=== PATIENT | male | born 1975 | race American Indian/Alaskan Native ===

== ENCOUNTER 2017-08-07 11:14 | Emergency (ER) | payer SELFPAY ==
[2017-08-07 11:27] VITALS: BP 137/94
--- NOTE | 2017-08-07 14:38 | Emergency Department Report ---
Abscess Boil HPI - HPI Chief Complaint: Skin/Abscess/Foreign Body Stated Complaint: LFT SIDE FACE ABSCESS Time Seen by Provider: 08/07/17 14:26 Duration: 6 Days Location: Other (facial submandibular) History: Yes Pain, No Fever, No Purulent Drainage, No Numbness, No Foreign Body , No Previous History, No Insect Bite Home Medications: Home Medications Medication Instructions Recorded Confirmed Last Taken Divalproex Dr [Depakote] 500 mg PO BID 12/14/13 02/24/15 11/30/13 Previous Rx's Medication Instructions Recorded Last Taken Type Cyclobenzaprine [Flexeril 10mg] 10 mg PO TID PRN #20 tablet 02/24/15 Unknown Rx Ibuprofen [Motrin] 800 mg PO Q8H #30 tablet 02/24/15 Unknown Rx traMADol [Ultram 50 MG tab] 50 mg PO Q6HR PRN #20 tablet 02/24/15 Unknown Rx HYDROcodone/APAP 5-325 [[place] 1 each PO Q4HR PRN #20 tablet 02/19/16 Unknown Rx 5/325] Ibuprofen [Motrin] 600 mg PO Q6H PRN #20 tablet 02/19/16 Unknown Rx Penicillin Vk [Veetids TAB] 500 mg PO QID #40 tablet 02/19/16 Unknown Rx Cephalexin [Keflex] 500 mg PO TID #30 capsule 08/07/17 Unknown Rx Naproxen [Naproxen TAB] 500 mg PO BID PRN #60 tablet 08/07/17 Unknown Rx Allergies/Adverse Reactions: Allergies Allergy/AdvReac Type Severity Reaction Status Date / Time No Known Allergies Allergy Verified 06/24/15 14:02 ED Review of Systems ROS: Stated complaint: LFT SIDE FACE ABSCESS Other details as noted in HPI Constitutional: denies: chills, fever Eyes: denies: eye pain, eye discharge, vision change ENT: denies: ear pain, throat pain Respiratory: denies: cough, shortness of breath, wheezing Cardiovascular: denies: chest pain, palpitations Endocrine: no symptoms reported Gastrointestinal: denies: abdominal pain, nausea, diarrhea Genitourinary: denies: urgency, dysuria Musculoskeletal: denies: back pain, joint swelling, arthralgia Skin: other (abscess ) Neurological: denies: headache, weakness, paresthesias Psychiatric: denies: anxiety, depression Hematological/Lymphatic: denies: easy bleeding, easy bruising ED Past Medical Hx - Past Medical History Hx Psychiatric Treatment: Yes (BIPOLAR) Additional medical history: SICKLE CELL TRAIT. emphysema - Social History Smoking Status: Current Every Day Smoker Substance Use Type: Alcohol - Medications Home Medications: Home Medications Medication Instructions Recorded Confirmed Last Taken Type Divalproex Dr [Depakote] 500 mg PO BID 12/14/13 02/24/15 11/30/13 History Cyclobenzaprine [Flexeril 10mg] 10 mg PO TID PRN #20 tablet 02/24/15 Unknown Rx Ibuprofen [Motrin] 800 mg PO Q8H #30 tablet 02/24/15 Unknown Rx traMADol [Ultram 50 MG tab] 50 mg PO Q6HR PRN #20 tablet 02/24/15 Unknown Rx HYDROcodone/APAP 5-325 [[place] 1 each PO Q4HR PRN #20 tablet 02/19/16 Unknown Rx 5/325] Ibuprofen [Motrin] 600 mg PO Q6H PRN #20 tablet 02/19/16 Unknown Rx Penicillin Vk [Veetids TAB] 500 mg PO QID #40 tablet 02/19/16 Unknown Rx Cephalexin [Keflex] 500 mg PO TID #30 capsule 08/07/17 Unknown Rx Naproxen [Naproxen TAB] 500 mg PO BID PRN #60 tablet 08/07/17 Unknown Rx ED Abscess Boil Physical Exam - Exam General: Vital signs noted. No distress. Alert and acting appropriately. Front/Back of Body, Lg (Color): 1 - left submandibular abscess superfical fluctuant no drainage no erythema Size: 1 cm Exam: Yes Fluctuance, No Tenderness, No Surrounding Cellulites/Erythema, No Lymphangitis, No Crepitation, No Heart Murmur, No Normal Neurologic Exam, No Normal Circulation I & D Note - I & D Note I & D Note: left submandibular abscess superfical no oral involvement, site cleaned wtih betadine solution straight needle aspiration wtih 18 ga needle minimal purulent drainage, no ingrown hair noted, dressing applied pt given care instructions , pt verbalized agreement and understanding of same. pt tolerated procedure with minmal distress. ED Course Vital Signs 08/07/17 11:25 Temperature 98.4 F Pulse Rate 86 Respiratory 16 Rate Blood Pressure 137/94 O2 Sat by Pulse 100 Oximetry Critical care attestation.: If time is entered above; I have spent that time in minutes in the direct care of this critically ill patient, excluding procedure time. ED Medical Decision Making - Medical Decision Making pt is a 42 y/o aam who presents with facial abcess hx of same I&D see procedure note, pt tolerated with minimal distress, pt has hx of psuedofolliculitis will tx with keflex, soapwater washes no shaving until cleared pt verbalized agreement and understanding of same. ED Disposition Clinical Impression: Facial abscess, Folliculitis barbae Disposition: DC- TO HOME OR SELFCARE Is pt being admited?: No Does the pt Need Aspirin: No Condition: Good Instructions: Folliculitis (ED), Abscess (ED) Prescriptions: Cephalexin [Keflex] 500 mg PO TID #30 capsule Naproxen [Naproxen TAB] 500 mg PO BID PRN #60 tablet PRN Reason: Pain Referrals: PRIMARY CARE, [Primary Care Provider] - 3-5 Days Forms: Work/School Release Form(ED) Time of Disposition: 14:40
== END 2017-08-07 14:43 | disposition home or self-care (01) ==
LOC: ED 11:14
DX: L02.01 Cutaneous abscess of face (principal); L73.8 Other specified follicular disorders; F17.200 Nicotine dependence, unspecified, uncomplicated
CPT/HCPCS: 99281

== ENCOUNTER 2018-06-06 19:22 | Emergency (ER) | payer SELFPAY ==
[2018-06-06 19:52] VITALS: BP 123/83
[2018-06-06] MEDS ORDERED: MOTRIN PO ONE (19:52)
== END 2018-06-06 22:40 | disposition left against medical advice (07) ==
LOC: ED 19:22
DX: S61.451A Open bite of right hand, initial encounter (principal); Z53.21 Procedure and treatment not carried out due to patient leaving prior to being seen by health care provider; W54.0XXA Bitten by dog, initial encounter; Y93.89 Activity, other specified; Y92.89 Other specified places as the place of occurrence of the external cause; Y99.8 Other external cause status

== ENCOUNTER 2018-06-07 10:26 | Emergency (ER) | payer SELFPAY ==
[2018-06-07 10:32] VITALS: BP 108/88
--- NOTE | 2018-06-07 11:39 | Emergency Department Report ---
ED Animal Bite HPI - General Chief Complaint: Animal Bite Stated Complaint: DOG BITE Time Seen by Provider: 06/07/18 11:38 Source: patient Mode of arrival: Ambulatory Limitations: No Limitations - History of Present Illness Initial Comments: This is a 43-year-old -Thai male presents with laceration and puncture wound to right hand from a dog bite last night. Patient reports going over to his house last night around 1800 by his aunts dog. Patient states he reached down to grab his puppy to avoid his aunts dog from bitting his dog and got bite by his aunts dog on right hand. Initially he noticed bleeding from laceration and puncture wound around palm of 4th and 5th digits. There is swelling at laceration site and painful to touch. He has full range of motion with all digits. He cleaned with soap and water and came to ER last night for evaluation. He left prior to being seen and came back today for evaluation. Patient reports notifying police who called animal control. The dog was taking from home by animal control. He is unsure of immunization history. His aunt reports dog received shots initially when she received him and he is 2 years old. He doesn't believe the dog is infected with rabies because he is a house dog. Denies numbness or tingling, loss of consciousness, chest pain, and shortness of breath. MD Complaint: animal bite -: Last night Right: Hand Animal: dog Animal Control Notified: Yes Description: household pet, immunizations unknown, appeared well Mechanism: bite Pain Description: sharp, intermittent Severity scale (0 -10): 5 Context: animals fighting Associated Symptoms: erythema, bleeding. denies: discharge from wound, fever, chills, rash, loss of consciousness, cough, headache, diaphoresis, shortness of breath Treatments Prior to Arrival: irrigation - Related Data Home Medications Medication Instructions Recorded Confirmed Last Taken Divalproex Dr [Depakote] 500 mg PO BID 12/14/13 02/24/15 11/30/13 Previous Rx's Medication Instructions Recorded Last Taken Type Cyclobenzaprine [Flexeril 10mg] 10 mg PO TID PRN #20 tablet 02/24/15 Unknown Rx Ibuprofen [Motrin] 800 mg PO Q8H #30 tablet 02/24/15 Unknown Rx traMADol [Ultram 50 MG tab] 50 mg PO Q6HR PRN #20 tablet 02/24/15 Unknown Rx HYDROcodone/APAP 5-325 [[place] 1 each PO Q4HR PRN #20 tablet 02/19/16 Unknown Rx 5/325] Ibuprofen [Motrin] 600 mg PO Q6H PRN #20 tablet 02/19/16 Unknown Rx Penicillin Vk [Veetids TAB] 500 mg PO QID #40 tablet 02/19/16 Unknown Rx Cephalexin [Keflex] 500 mg PO TID #30 capsule 08/07/17 Unknown Rx Naproxen [Naproxen TAB] 500 mg PO BID PRN #60 tablet 08/07/17 Unknown Rx Acetaminophen/Codeine [Tylenol 1 tab PO Q6H PRN #12 tab 06/07/18 Unknown Rx /Codeine # 3 tab] Sulfamethoxazole/Trimethoprim 1 each PO BID 7 Days #14 tablet 06/07/18 Unknown Rx [Bactrim DS TAB] Allergies Allergy/AdvReac Type Severity Reaction Status Date / Time No Known Allergies Allergy Verified 06/24/15 14:02 ED Review of Systems ROS: Stated complaint: DOG BITE Other details as noted in HPI Constitutional: denies: chills, fever Respiratory: denies: cough, shortness of breath, wheezing Cardiovascular: denies: chest pain, palpitations Gastrointestinal: denies: abdominal pain, nausea, vomiting, diarrhea Skin: lesions (laceration and puncture wound to right hand). denies: rash Neurological: denies: headache, weakness, numbness, paresthesias Psychiatric: denies: anxiety, depression ED Past Medical Hx - Past Medical History Hx Psychiatric Treatment: Yes (BIPOLAR) Additional medical history: SICKLE CELL TRAIT. emphysema - Surgical History Past Surgical History?: No - Social History Smoking Status: Current Every Day Smoker Substance Use Type: Alcohol, Marijuana - Medications Home Medications: Home Medications Medication Instructions Recorded Confirmed Last Taken Type Divalproex Dr [Depakote] 500 mg PO BID 12/14/13 02/24/15 11/30/13 History Cyclobenzaprine [Flexeril 10mg] 10 mg PO TID PRN #20 tablet 02/24/15 Unknown Rx Ibuprofen [Motrin] 800 mg PO Q8H #30 tablet 02/24/15 Unknown Rx traMADol [Ultram 50 MG tab] 50 mg PO Q6HR PRN #20 tablet 02/24/15 Unknown Rx HYDROcodone/APAP 5-325 [[place] 1 each PO Q4HR PRN #20 tablet 02/19/16 Unknown Rx 5/325] Ibuprofen [Motrin] 600 mg PO Q6H PRN #20 tablet 02/19/16 Unknown Rx Penicillin Vk [Veetids TAB] 500 mg PO QID #40 tablet 02/19/16 Unknown Rx Cephalexin [Keflex] 500 mg PO TID #30 capsule 08/07/17 Unknown Rx Naproxen [Naproxen TAB] 500 mg PO BID PRN #60 tablet 08/07/17 Unknown Rx Acetaminophen/Codeine [Tylenol 1 tab PO Q6H PRN #12 tab 06/07/18 Unknown Rx /Codeine # 3 tab] Sulfamethoxazole/Trimethoprim 1 each PO BID 7 Days #14 tablet 06/07/18 Unknown Rx [Bactrim DS TAB] ED Physical Exam - General Limitations: No Limitations General appearance: alert, in no apparent distress - Respiratory Respiratory exam: Present: normal lung sounds bilaterally. Absent: respiratory distress - Cardiovascular Cardiovascular Exam: Present: regular rate, normal rhythm. Absent: systolic murmur, diastolic murmur, rubs, gallop - GI/Abdominal GI/Abdominal exam: Present: soft, normal bowel sounds - Extremities Exam Extremities exam: Present: full ROM, normal capillary refill. Absent: calf tenderness - Expanded Upper Extremity Exam Right Shoulder Exam: Present: normal inspection, full ROM Upper Arm exam: Present: normal inspection, full ROM Elbow exam: Present: normal inspection, full ROM Forearm Wrist exam: Present: normal inspection, full ROM Hand Wrist exam: Present: full ROM, swelling, laceration (puncture wound at 5th PIP, laceration palm PIP between 4th and 5th phalanx). Absent: tenderness, ecchymosis, deformity, crepidus, dislocation, erythema, amputation, nail avulsion, subungual hematoma Neuro motor exam: Present: wrist extension intact, thumb opposition intact, thumb IP flexion intact, thumb adduction intact, fingers 2-5 abduction intact Neurosensory exam: Present: radial nerve intact Vascular: Present: normal capillary refill, radial pulse - Neurological Exam Neurological exam: Present: alert, oriented X3 - Psychiatric Psychiatric exam: Present: normal affect, normal mood - Skin Skin exam: Present: warm, dry, intact, normal color. Absent: rash ED Course Vital Signs 06/07/18 10:29 Temperature 98.5 F Pulse Rate 96 H Respiratory 17 Rate Blood Pressure 108/88 O2 Sat by Pulse 98 Oximetry Critical care attestation.: If time is entered above; I have spent that time in minutes in the direct care of this critically ill patient, excluding procedure time. ED Disposition Clinical Impression: Left hand pain, Cellulitis of hand excluding fingers Dog bite of left hand with infection Qualifiers: Encounter type: initial encounter Qualified Code(s): S61.452A - Open bite of left hand, initial encounter Disposition: TO HOME OR SELFCARE Is pt being admited?: No Does the pt Need Aspirin: No Condition: Stable Instructions: Animal Bite (ED) Additional Instructions: Complete full course of antibiotics as prescribed. Take pain medication every 6 hours as needed for pain. Follow-up with primary care provider in 2-3 days. Return to the ER if fever, chest pain, and foul smelling discharge. Prescriptions: Acetaminophen/Codeine [Tylenol /Codeine # 3 tab] 1 tab PO Q6H PRN #12 tab PRN Reason: Pain , Severe (7-10) Sulfamethoxazole/Trimethoprim [Bactrim DS TAB] 1 each PO BID 7 Days #14 tablet Referrals: [facility] [Outside] - 3-5 Days [facility] [Outside] - 3-5 Days [facility] [Outside] - 3-5 Days Time of Disposition: 12:42 Print Language: MONGOLIAN ED Medical Decision Making - Radiology Data Radiology results: report reviewed Right hand: Dog bite. There appears to be soft tissue laceration along the fifth metacarpal. No foreign body noted. No underlying bony injury. The remainder of the bones and joints appear unremarkable. Impression: Soft tissue injury. - Medical Decision Making This is a 43 y.o. male presents with dog bite to right hand with puncture wound and laceration from yesterday around 1800. Patient was examined by me. Vitals are normal. X-ray of right hand obtained and reevaluated by radiology, soft tissue injury. Patient offered rabies prophylaxis and refused. Patient given tetanus and tramadol in ER. Start Bactrim DS, naproxen, Tylenol #3 for cellulitis. Patient informed of results. Plan discussed with patient to discharge home and treat outpatient. He agrees with ER plan. Patient discharged home in stable condition. Follow up with PCP in 2-3 days.Soft tissue injury.
--- NOTE | 2018-06-07 12:32 | XRay Report ---
Right hand: Dog bite. There appears to be soft tissue laceration along the fifth metacarpal. No foreign body noted. No underlying bony injury. The remainder of the bones and joints appear unremarkable. Impression: Soft tissue injury.
[2018-06-07] MEDS ORDERED: BOOSTRIX IM ONE (12:44)
[2018-06-07] MEDS ORDERED: ULTRAM PO ONE (12:44)
== END 2018-06-07 12:54 | disposition home or self-care (01) ==
LOC: ED 10:26
DX: S61.452A Open bite of left hand, initial encounter (principal); L03.113 Cellulitis of right upper limb; F31.9 Bipolar disorder, unspecified; F17.200 Nicotine dependence, unspecified, uncomplicated; F12.10 Cannabis abuse, uncomplicated
CPT/HCPCS: 90471; 90715; 99283

== ENCOUNTER 2021-08-23 16:32 | Inpatient (IN) | payer SELFPAY ==
[2021-08-23] MEDS ORDERED: SODIUM CHLORIDE 0.9% 1000 ML 1,000 ML IV ONE ×2 (17:06)
--- NOTE | 2021-08-23 17:23 | Emergency Department Report ---
HPI - General Chief Complaint: Hyperglycemia Time Seen by Provider: 08/23/21 16:57 - HPI HPI: MSE 6 The patient is a 46-year-old male present present with a chief complaint of nausea vomiting. The patient states he has been out of his insulin for the past 4 weeks. Patient states for the past 2 weeks he has had persistent nausea vomiting making him unable to keep any food down. Patient admits to polyuria and polydipsia. Patient denies history of fever or cough. Patient states he received his Covid vaccination several months ago. ED Past Medical Hx - Past Medical History Hx Diabetes: Yes Hx Psychiatric Treatment: Yes (BIPOLAR) Additional medical history: SICKLE CELL TRAIT. emphysema - Surgical History Past Surgical History?: No - Family History Family history: no significant - Social History Smoking Status: Current Every Day Smoker (12/13 pack/day) Substance Use Type: Alcohol (Occasional), Marijuana, Methamphetamines (No IVDA) - Medications Home Medications: Home Medications Medication Instructions Recorded Confirmed Last Taken Type Divalproex Dr [Depakote] 500 mg PO BID 12/14/13 02/24/15 11/30/13 History Cyclobenzaprine [Flexeril 10mg] 10 mg PO TID PRN #20 tablet 02/24/15 Unknown Rx Ibuprofen [Motrin] 800 mg PO Q8H #30 tablet 02/24/15 Unknown Rx traMADoL [Ultram 50 MG tab] 50 mg PO Q6HR PRN #20 tablet 02/24/15 Unknown Rx HYDROcodone/APAP 5-325 [[place] 1 each PO Q4HR PRN #20 tablet 02/19/16 Unknown Rx 5/325] Ibuprofen [Motrin] 600 mg PO Q6H PRN #20 tablet 02/19/16 Unknown Rx Penicillin Vk [Veetids TAB] 500 mg PO QID #40 tablet 02/19/16 Unknown Rx Naproxen [Naproxen TAB] 500 mg PO BID PRN #60 tablet 08/07/17 Unknown Rx cephALEXin [Keflex] 500 mg PO TID #30 capsule 08/07/17 Unknown Rx Acetaminophen/Codeine [Tylenol 1 tab PO Q6H PRN #12 tab 06/07/18 Unknown Rx /Codeine # 3 tab] Sulfamethoxazole/Trimethoprim 1 each PO BID 7 Days #14 tablet 06/07/18 Unknown Rx [Bactrim DS TAB] ED Review of Systems ROS: Stated complaint: DKA Other details as noted in HPI Eyes: denies: eye pain ENT: denies: throat pain Respiratory: denies: cough Cardiovascular: denies: chest pain Endocrine: increased thirst, increased urine Gastrointestinal: nausea, vomiting Genitourinary: denies: dysuria Musculoskeletal: denies: back pain Neurological: denies: headache Physical Exam - Physical Exam Vital Signs: Vital Signs 08/23/21 16:48 Respiratory 20 Rate Blood Pressure 97/60 Physical Exam: GENERAL: The patient is a very thin male sitting in wheelchair not appearing to be in acute distress HEENT: Normocephalic. Atraumatic. Extraocular motions are intact. NECK: Supple. Trachea midline CHEST/LUNGS: Clear to auscultation. There is no respiratory distress noted. HEART/CARDIOVASCULAR: Regular. There is no tachycardia. There is no gallop rub or murmur. ABDOMEN: Abdomen is soft, nontender. Patient has normal bowel sounds. There is no abdominal distention. SKIN: There is no rash. There is no edema. There is no diaphoresis. NEURO: The patient is awake, alert, and oriented. The patient is cooperative. The patient has no focal neurologic deficits. The patient has normal speech. GCS 15 MUSCULOSKELETAL:There is no evidence of acute injury. ED Course Vital Signs 08/23/21 16:48 Respiratory 20 Rate Blood Pressure 97/60 ED Medical Decision Making - Lab Data Result diagrams: 08/23/21 18:39 - Differential Diagnosis DKA, dehydration, hyperosmotic nonketotic state Critical care attestation.: If time is entered above; I have spent that time in minutes in the direct care of this critically ill patient, excluding procedure time. ED Disposition Clinical Impression: DKA (diabetic ketoacidosis) Disposition: ADMITTED INPATIENT Is pt being admited?: Yes Does the pt Need Aspirin: No Condition: Fair Instructions: Diabetic Ketoacidosis (ED)
[2021-08-23 19:20] LABS: BUN/Creatinine Ratio 25; Blood Urea Nitrogen 35 mg/dL (9-20); Calcium 9.9 mg/dL (8.4-10.2); Hemolysis Index 33
[2021-08-23 19:53] LABS: Basophils % (Auto) 0.6 % (0.0-1.8); Hematocrit 45.5 % (35.5-45.6); Hemoglobin 14.7 gm/dl (11.8-15.2); Lymphocytes # (Auto) 1.1 K/mm3 (1.2-5.4); Lymphocytes % (Auto) 25.7 % (13.4-35.0); Mean Corpuscular HGB Conc 32 % (32-34); Mean Corpuscular Volume 84 fl (84-94); Monocytes # (Auto) 0.2 K/mm3 (0.0-0.8); Monocytes % (Auto) 5.7 % (0.0-7.3); Red Blood Count 5.42 M/mm3 (3.65-5.03); Red Cell Distribution Width 16.7 % (13.2-15.2)
[2021-08-23] MEDS ORDERED: INSULIN REGULAR, HUMAN 100 UNITS in SODIUM CHLORIDE 0.9% 99 ML IV SCH (20:00)
[2021-08-23 20:10] LABS: Platelet Count 132 K/mm3 (140-440)
[2021-08-23] MEDS ORDERED: ALUM-MAG HYDROXIDE-SIMETHICONE 200-200-20MG/5ML ORAL LIQD 30 ML PO PRN (20:35)
[2021-08-23] MEDS ORDERED: ONDANSETRON 4 MG/2 ML INJ IV PRN ×2 (20:35)
[2021-08-23] MEDS ORDERED: ACETAMINOPHEN 325 MG TAB PO PRN ×2 (20:35)
[2021-08-23] MEDS ORDERED: oxyCODONE /ACETAMINOPHEN 5-325MG TAB PO PRN (20:35)
[2021-08-23] MEDS ORDERED: HYDROmorphone 1 MG/1 ML INJ IV PRN (20:35)
[2021-08-23] MEDS ORDERED: MORPHINE 2 MG/1 ML INJ IV PRN ×2 (20:35)
[2021-08-23] MEDS ORDERED: NALOXONE 0.4 MG/1 ML INJ IV PRN (20:35)
[2021-08-23] MEDS ORDERED: MAGNESIUM HYDROXIDE (MOM) ORAL LIQD UDC PO PRN (20:35)
[2021-08-23] MEDS ORDERED: SODIUM CHLORIDE 0.9% 1000 ML 1,000 ML IV SCH ×2 (20:45)
[2021-08-23] MEDS ORDERED: DIVALPROEX DR 500 MG TAB PO SCH (22:00)
[2021-08-23] MEDS ORDERED: HEPARIN 5,000 UNIT/1 ML VIAL SUB-Q SCH (22:00)
--- NOTE | 2021-08-23 22:40 | History and Physical Report ---
History of Present Illness Date of examination: 08/23/21 Date of admission: 08/23/21 20:35 Chief complaint: Generalized weakness History of present illness: This is a 46-year-old male who presented to emergency room with chief complaint of nausea, vomiting, and generalized weakness. When asked why did he come to the emergency room, patient said his mother brought him because he was weak. He has a past medical history of uncontrolled diabetes and seizure disorder.The patient states he has been out of his insulin for the past 4 weeks. Patient states for the past 2 weeks he has had persistent nausea vomiting making him unable to keep any food down. Patient admits to polyuria and polydipsia. Patient denies history of fever or cough. Patient states he received his Covid vaccination several months ago. I reviewed her medical medical record, lab work and vital signs. Patient blood sugar on admission 726 mg/dl. Patient was started on DKA protocolinsulin drip with every hour blood sugar check. Past History Past Medical History: diabetes, seizures Past Surgical History: No surgical history Social history: smoking, alcohol abuse, full code. denies: prescription drug abuse, IV drug use Family history: no significant family history Medications and Allergies Allergies Allergy/AdvReac Type Severity Reaction Status Date / Time No Known Allergies Allergy Verified 06/24/15 14:02 Home Medications Medication Instructions Recorded Confirmed Last Taken Type Divalproex Dr [Depakote] 500 mg PO BID 12/14/13 02/24/15 11/30/13 History Cyclobenzaprine [Flexeril 10mg] 10 mg PO TID PRN #20 tablet 02/24/15 Unknown Rx Ibuprofen [Motrin] 800 mg PO Q8H #30 tablet 02/24/15 Unknown Rx traMADoL [Ultram 50 MG tab] 50 mg PO Q6HR PRN #20 tablet 02/24/15 Unknown Rx HYDROcodone/APAP 5-325 [[place] 1 each PO Q4HR PRN #20 tablet 02/19/16 Unknown Rx 5/325] Ibuprofen [Motrin] 600 mg PO Q6H PRN #20 tablet 02/19/16 Unknown Rx Penicillin Vk [Veetids TAB] 500 mg PO QID #40 tablet 02/19/16 Unknown Rx Naproxen [Naproxen TAB] 500 mg PO BID PRN #60 tablet 08/07/17 Unknown Rx cephALEXin [Keflex] 500 mg PO TID #30 capsule 08/07/17 Unknown Rx Acetaminophen/Codeine [Tylenol 1 tab PO Q6H PRN #12 tab 06/07/18 Unknown Rx /Codeine # 3 tab] Sulfamethoxazole/Trimethoprim 1 each PO BID 7 Days #14 tablet 06/07/18 Unknown Rx [Bactrim DS TAB] Active Meds: Active Medications Acetaminophen (Acetaminophen 325 Mg Tab) 650 mg PO Q4H PRN PRN Reason: Pain MILD(1-3)/Fever >100.5/[place] Al Hydrox/Mg Hydrox/Simethicone (Alum-Mag Hydroxide-Simethicone [phone]/5ml Oral Liqd 30 Ml) 30 ml PO Q4H PRN PRN Reason: Indigestion Divalproex Sodium (Divalproex Dr 500 Mg Tab) 500 mg PO BID JUAN JOSÉ Heparin Sodium (Porcine) (Heparin 5,000 Unit/1 Ml Vial) 5,000 unit SUB-Q Q12HR JUAN JOSÉ Last Admin: 08/23/21 22:24 Dose: 5,000 unit Documented by: Hydromorphone HCl (Hydromorphone 1 Mg/1 Ml Inj) 0.5 mg IV Q3H PRN PRN Reason: Pain , Severe (7-10) Insulin Human Regular 100 (units/ Sodium Chloride) 100 mls @ 5 mls/hr IV TITR JUAN JOSÉ; Protocol Last Titration: 08/23/21 22:23 Dose: 7 units/hr, 7 mls/hr Documented by: Sodium Chloride (Nacl 0.9% 1000 Ml) 1,000 mls @ 125 mls/hr IV DIRECT JUAN JOSÉ Last Admin: 08/23/21 21:24 Dose: 125 mls/hr Documented by: Magnesium Hydroxide (Magnesium Hydroxide (Mom) Oral Liqd Udc) 30 ml PO Q4H PRN PRN Reason: Constipation Morphine Sulfate (Morphine 2 Mg/1 Ml Inj) 2 mg IV Q4H PRN PRN Reason: Pain, Moderate (4-6) Morphine Sulfate (Morphine 2 Mg/1 Ml Inj) 2 mg IV Q4H PRN PRN Reason: Pain, Moderate (4-6) Naloxone HCl (Naloxone 0.4 Mg/1 Ml Inj) 0.1 mg IV Q2MIN PRN PRN Reason: Res Rate </= 8 or 02 SAT < 92% Ondansetron HCl (Ondansetron 4 Mg/2 Ml Inj) 4 mg IV Q8H PRN PRN Reason: Nausea And Vomiting Oxycodone/Acetaminophen (Oxycodone /Acetaminophen 5-325mg Tab) 1 tab PO Q6H PRN PRN Reason: Pain, Moderate (4-6) Sodium Chloride (Sodium Chloride 0.9% 10 Ml Flush Syringe) 10 ml IV BID [facility] Last Admin: 08/23/21 22:24 Dose: 10 ml Documented by: Sodium Chloride (Sodium Chloride 0.9% 10 Ml Flush Syringe) 10 ml IV PRN PRN PRN Reason: LINE FLUSH Sodium Chloride (Sodium Chloride 0.9% 10 Ml Flush Syringe) 10 ml IV BID [facility] Last Admin: 08/23/21 22:25 Dose: 10 ml Documented by: Sodium Chloride (Sodium Chloride 0.9% 10 Ml Flush Syringe) 10 ml IV PRN PRN PRN Reason: LINE FLUSH Review of Systems Constitutional: anorexia, fatigue, weakness Ears, nose, mouth and throat: no epistaxis, no bleeding gums Cardiovascular: lightheadedness, no dyspnea on exertion Gastrointestinal: no abdominal pain Musculoskeletal: no neck stiffness, no neck pain Integumentary: no rash, no pruritis, no redness Psychiatric: anxiety Endocrine: high blood sugars, fatigue Hematologic/Lymphatic: no easy bruising, no easy bleeding Allergic/Immunologic: no urticaria Exam - Constitutional Vitals: Temp Pulse Resp BP Pulse Ox 57 L 21 105/69 99 08/23/21 21:45 08/23/21 21:25 08/23/21 21:45 08/23/21 21:45 General appearance: Present: no acute distress, well-nourished - EENT Eyes: Present: PERRL ENT: hearing intact, clear oral mucosa - Neck Neck: Present: supple, normal ROM - Respiratory Respiratory effort: normal Respiratory: bilateral: CTA - Cardiovascular Heart Sounds: Present: S1 & S2. Absent: rub, click - Extremities Extremities: pulses symmetrical, No edema Peripheral Pulses: within normal limits - Abdominal General gastrointestinal: Present: soft, non-tender, non-distended, normal bowel sounds Male genitourinary: Present: normal - Integumentary Integumentary: Present: clear, warm, dry - Musculoskeletal Musculoskeletal: strength equal bilaterally, generalized weakness - Psychiatric Psychiatric: appropriate mood/affect, intact judgment & insight, cooperative - Neurologic Neurologic: CNII-XII intact, moves all extremities - Allied Health Allied health notes reviewed: nursing Results - Labs CBC & Chem 7: 08/23/21 18:39 08/24/21 04:12 Labs: Abnormal lab results 08/23/21 08/23/21 08/23/21 Range/Units 16:45 18:39 18:39 WBC 4.4 L (4.5-11.0) K/mm3 RBC 5.42 H (3.65-5.03) M/mm3 MCH 27 L (28-32) pg RDW 16.7 H (13.2-15.2) % Plt Count 132 L (140-440) K/mm3 Lymph # (Auto) 1.1 L (1.2-5.4) K/mm3 VBG pH (7.320-7.420) BUN 35 H (9-20) mg/dL Creatinine 1.4 H (0.8-1.3) mg/dL Glucose 726 H* (75-100) mg/dL POC Glucose > 600 H (70-105) mg/dL Valproic Acid (50-100) ug/mL 08/23/21 08/23/21 08/23/21 Range/Units 18:39 18:39 22:21 WBC (4.5-11.0) K/mm3 RBC (3.65-5.03) M/mm3 MCH (28-32) pg RDW (13.2-15.2) % Plt Count (140-440) K/mm3 Lymph # (Auto) (1.2-5.4) K/mm3 VBG pH 7.292 L (7.320-7.420) BUN (9-20) mg/dL Creatinine (0.8-1.3) mg/dL Glucose (75-100) mg/dL POC Glucose 387 H (70-105) mg/dL Valproic Acid < 2.8 L (50-100) ug/mL Assessment and Plan - Patient Problems (1) DKA (diabetic ketoacidosis) Current Visit: Yes Status: Acute Plan to address problem: Started IV hydration with normal saline Patient blood sugar 726 on admission Patient started on DKA protocol with insulin drip and blood sugar monitor every 1 hour. Blood sugar has normalized and is low 60s. We will stop insulin drip and monitor blood sugar very closely with sliding scale protocol We will resume insulin drip if needed. Discontinue normal saline IV hydration 2/2 to elevated sodium level and start 5% dextrose at 100 cc an hour. hemoglobin A1c-18.0 (2) Gastroenteritis Current Visit: No Status: Acute Plan to address problem: Likely secondary to elevated blood sugar/ uncontrolled diabetes Patient denies nausea, vomiting, or diarrhea at the time of assessment Continue antiemetic and Reglan as needed (3) Acute kidney injury Current Visit: Yes Status: Acute Plan to address problem: likely 2/2 to dehydration Monitor kidney function and avoid nephrotoxic drugs We will consult dairy processing supervisor if needed (4) Dehydration Current Visit: Yes Status: Acute Plan to address problem: IV hydration with Normal salin (5) Tobacco abuse Current Visit: Yes Status: Acute Plan to address problem: discussed tobacco use cessation Cardiovascular neoplasm syndrome of tobacco use explained to patient (6) History of seizure Current Visit: Yes Status: Acute Plan to address problem: Continue home antiseizure medicine Depakote Seizure precaution (7) Uncontrolled diabetes mellitus Current Visit: Yes Status: Acute Plan to address problem: Monitor blood sugar with sliding scale protocol Hemoglobin [id number] Start statin and check lipid profile Consult executive director sheltered workshop educator Patient advised to follow-up with program director air talent post discharge (8) DVT prophylaxis Current Visit: Yes Status: Acute Plan to address problem: Subcutaneous heparin
[2021-08-24 00:06] LABS: BUN/Creatinine Ratio 26; Blood Urea Nitrogen 31 mg/dL (9-20); Hemolysis Index 12
[2021-08-24] MEDS ORDERED: DEXTROSE 50% IN WATER (25GM) 50 ML SYRINGE IV PRN (00:45)
[2021-08-24 03:36] LABS: BUN/Creatinine Ratio 25; Blood Urea Nitrogen 27 mg/dL (9-20); Hemolysis Index 10
[2021-08-24 05:26] LABS: Alanine Aminotransferase 27 units/L (7-56); Albumin 3.7 g/dL (3.9-5); BUN/Creatinine Ratio 27; Blood Urea Nitrogen 27 mg/dL (9-20); Calcium 9.9 mg/dL (8.4-10.2); Hemolysis Index 4
[2021-08-24] MEDS ORDERED: INSULIN LISPRO 100 UNIT/ML SUB-Q SCH ×2 (06:00→08:00)
[2021-08-24] MEDS ORDERED: DEXTROSE 5% IN WATER 1,000 ML IV SCH (07:00)
[2021-08-24 07:29] VITALS: BP 94/61
--- NOTE | 2021-08-24 08:20 | Progress Note ---
Assessment and Plan Assessment and plan: 46-year-old male with past medical history of diabetes and seizures presenting to the emergency department with complaint of nausea, vomiting, generalized weakness. Admission blue blood glucose 726 mg/ DL. Patient is admitted for diabetic ketoacidosis, initiated on DKA protocol/insulin drip and is currently ICU level of care. Hospital course to date Assessment and Plan Neuro Cardio Pulmonary GI Heme ID Endo The high probability of a clinically significant, sudden or life threatening deterioration of the [pulmonary, neuro] system(s) required my full and direct attention, intervention and personal management. The aggregate critical care time was [60] minutes. This time is in addition to time spent performing reported procedures but includes the following: [x] Data Review and interpretation [x] Patient assessment and monitoring of vital signs [x] Documentation [x] Medication orders and management Hospitalist Physical - Constitutional Vitals: Temp Pulse Resp BP Pulse Ox 97.8 F 60 12 94/61 84 08/23/21 22:30 08/24/21 07:15 08/24/21 07:15 08/24/21 07:15 08/24/21 07:01 General appearance: Present: no acute distress, well-nourished Results - Labs CBC & Chem 7: 08/23/21 18:39 08/24/21 04:12 Labs: Laboratory Last Values WBC 4.4 K/mm3 (4.5-11.0) L 08/23/21 18:39 RBC 5.42 M/mm3 (3.65-5.03) H 08/23/21 18:39 Hgb 14.7 gm/dl (11.8-15.2) 08/23/21 18:39 Hct 45.5 % (35.5-45.6) 08/23/21 18:39 MCV 84 fl (84-94) 08/23/21 18:39 MCH 27 pg (28-32) L 08/23/21 18:39 MCHC 32 % (32-34) 08/23/21 18:39 RDW 16.7 % (13.2-15.2) H 08/23/21 18:39 Plt Count 132 K/mm3 (140-440) L 08/23/21 18:39 Lymph % (Auto) 25.7 % (13.4-35.0) 08/23/21 18:39 [place] % (Auto) 5.7 % (0.0-7.3) 08/23/21 18:39 Eos % (Auto) 1.0 % (0.0-4.3) 08/23/21 18:39 Baso % (Auto) 0.6 % (0.0-1.8) 08/23/21 18:39 Lymph # (Auto) 1.1 K/mm3 (1.2-5.4) L 08/23/21 18:39 [place] # (Auto) 0.2 K/mm3 (0.0-0.8) 08/23/21 18:39 Eos # (Auto) 0.0 K/mm3 (0.0-0.4) 08/23/21 18:39 Baso # (Auto) 0.0 K/mm3 (0.0-0.1) 08/23/21 18:39 Seg Neutrophils % 67.0 % (40.0-70.0) 08/23/21 18:39 Seg Neutrophils # 2.9 K/mm3 (1.8-7.7) 08/23/21 18:39 VBG pH 7.292 (7.320-7.420) L 08/23/21 18:39 Sodium 157 mmol/L (137-145) H 08/24/21 04:12 Potassium 3.8 mmol/L (3.6-5.0) 08/24/21 04:12 Chloride 120.1 mmol/L (98-107) H 08/24/21 04:12 Carbon Dioxide 24 mmol/L (22-30) 08/24/21 04:12 Anion Gap 17 mmol/L 08/24/21 04:12 BUN 27 mg/dL (9-20) H 08/24/21 04:12 Creatinine 1.0 mg/dL (0.8-1.3) 08/24/21 04:12 Estimated GFR > 60 ml/min 08/24/21 04:12 BUN/Creatinine Ratio 27 % 08/24/21 04:12 Glucose 68 mg/dL (75-100) L 08/24/21 04:12 POC Glucose 245 mg/dL (70-105) H 08/24/21 07:10 Hemoglobin A1c 18.0 % (4-6) H 08/23/21 18:39 Calcium 9.9 mg/dL (8.4-10.2) 08/24/21 04:12 Phosphorus 2.00 mg/dL (2.5-4.5) L 08/24/21 04:12 Magnesium 2.70 mg/dL (1.7-2.3) H 08/24/21 04:12 Total Bilirubin < 0.20 mg/dL (0.1-1.2) 08/24/21 04:12 AST 19 units/L (5-40) 08/24/21 04:12 ALT 27 units/L (7-56) 08/24/21 04:12 Alkaline Phosphatase 87 units/L (35-129) 08/24/21 04:12 Total Protein 6.8 g/dL (6.3-8.2) 08/24/21 04:12 Albumin 3.7 g/dL (3.9-5) L 08/24/21 04:12 Albumin/Globulin Ratio 1.2 % 08/24/21 04:12 Lipase 47 units/L (13-60) 08/23/21 18:39 Valproic Acid < 2.8 ug/mL (50-100) L 08/23/21 18:39 Active Medications - Current Medications Current Medications: Generic Name Dose Route Start Last Admin Trade Name Freq PRN Reason Stop Dose Admin Acetaminophen 650 mg 08/23/21 20:35 Acetaminophen 325 Mg Tab PO Q4H PRN Pain MILD(1-3)/Fever >100.5/[place] Al Hydrox/Mg Hydrox/Simethicone 30 ml 08/23/21 20:35 Alum-Mag Hydroxide-Simethicone [phone]/5ml Oral Liqd 30 Ml PO Q4H PRN Indigestion Dextrose 50 ml 08/24/21 00:45 Dextrose 50% In Water (25gm) 50 Ml Syringe IV Q30MIN PRN Hypoglycemia Protocol Divalproex Sodium 500 mg 08/23/21 22:00 08/23/21 23:[address] 500 Mg Tab PO Not Given BID JUAN JOSÉ Heparin Sodium (Porcine) 5,000 unit 08/23/21 22:00 08/23/21 22:24 Heparin 5,000 Unit/1 Ml Vial SUB-Q 5,000 unit Q12HR JUAN JOSÉ Administration Hydromorphone HCl 0.5 mg 08/23/21 20:35 Hydromorphone 1 Mg/1 Ml Inj IV Q3H PRN Pain , Severe (7-10) Dextrose 1,000 mls @ 100 mls/hr 08/24/21 07:00 D5w IV DIRECT [facility] Insulin Glargine 15 units 08/24/21 22:00 Insulin Glargine 100 Units/Ml SUB-Q QHS [facility] Insulin Human Lispro 0 unit 08/24/21 06:00 08/24/21 07:07 Insulin Lispro 100 Unit/Ml SUB-Q Not Given Q6HR [facility] Protocol Insulin Human Lispro 6 unit 08/24/21 08:00 Insulin Lispro 100 Unit/Ml SUB-Q ACHS JUAN JOSÉ Magnesium Hydroxide 30 ml 08/23/21 20:35 Magnesium Hydroxide (Mom) Oral Liqd Udc PO Q4H PRN Constipation Morphine Sulfate 2 mg 08/23/21 20:35 Morphine 2 Mg/1 Ml Inj IV Q4H PRN Pain, Moderate (4-6) Morphine Sulfate 2 mg 08/23/21 20:35 Morphine 2 Mg/1 Ml Inj IV Q4H PRN Pain, Moderate (4-6) Naloxone HCl 0.1 mg 08/23/21 20:35 Naloxone 0.4 Mg/1 Ml Inj IV Q2MIN PRN Res Rate </= 8 or 02 SAT < 92% Ondansetron HCl 4 mg 08/23/21 20:35 Ondansetron 4 Mg/2 Ml Inj IV Q8H PRN Nausea And Vomiting Oxycodone/Acetaminophen 1 tab 08/23/21 20:35 Oxycodone /Acetaminophen 5-325mg Tab PO Q6H PRN Pain, Moderate (4-6) Sodium Chloride 10 ml 08/23/21 22:00 08/23/21 22:24 Sodium Chloride 0.9% 10 Ml Flush Syringe IV 10 ml BID UJAN JOSÉ Administration Sodium Chloride 10 ml 08/23/21 20:35 Sodium Chloride 0.9% 10 Ml Flush Syringe IV PRN PRN LINE FLUSH Sodium Chloride 10 ml 08/23/21 22:00 08/23/21 22:25 Sodium Chloride 0.9% 10 Ml Flush Syringe IV 10 ml BID JUAN JOSÉ Administration Sodium Chloride 10 ml 08/23/21 20:35 Sodium Chloride 0.9% 10 Ml Flush Syringe IV PRN PRN LINE FLUSH
--- NOTE | 2021-08-24 13:26 | Discharge Summary ---
Providers - Providers Date of Admission: 08/23/21 20:35 Attending physician: FREDERICK SCOTT MD 08/23/21 20:35 Consult to Dietitian/Nutrition [CONS] Routine Physician Instructions: Reason For Exam: DKA Reason for Consult: Nutrition Recommendations Reason for Consult: Malnutrition Consult to Physician [CONS] Routine Comment: Consulting Provider: EMELI AGUERO Physician Instructions: Reason For Exam: DKA Primary care physician: [facility] MD CYNTHIA Hospitalization Reason for admission: weakness Condition: Undetermined Hospital course: Chief complaint: Generalized weakness History of present illness: This is a 46-year-old male who presented to emergency room with chief complaint of nausea, vomiting, and generalized weakness. When asked why did he come to the emergency room, patient said his mother brought him because he was weak. He has a past medical history of uncontrolled diabetes and seizure disorder.The patient states he has been out of his insulin for the past 4 weeks. Patient states for the past 2 weeks he has had persistent nausea vomiting making him unable to keep any food down. Patient admits to polyuria and polydipsia. Patient denies history of fever or cough. Patient states he received his Covid vaccination several months ago. I reviewed her medical medical record, lab work and vital signs. Patient blood sugar on admission 726 mg/dl. Patient was started on DKA protocolinsulin drip with every hour blood sugar check. Hospital course Admitted for diabetic ketoacidosis. Patient left AMA prior to being able to see patient. Disposition: LEFT AGAINST MEDICAL ADVICE Final Discharge Diagnosis (Prints w/discharge instructions): DKA Time spent for discharge: 35 Core Measure Documentation - Palliative Care Palliative Care/ Comfort Measures: Not Applicable - Core Measures Any of the following diagnoses?: none Exam - Physical Exam Narrative exam: Unable to examine - Constitutional Vitals: Temp Pulse Resp BP Pulse Ox 97.8 F 60 12 94/61 84 08/23/21 22:30 08/24/21 07:15 08/24/21 07:15 08/24/21 07:15 08/24/21 07:01 Plan Follow up with: UBALDO CASH MD [Primary Care Provider] - 7 Days Forms: AMA Form
[2021-08-24] MEDS ORDERED: INSULIN GLARGINE 100 UNITS/ML SUB-Q SCH (22:00)
== END 2021-08-24 10:10 | disposition left against medical advice (07) | DRG 638 ==
LOC: ED 16:32 → CC1 20:35
PROVIDERS: ADMIT Internal Medicine; ATTEND Internal Medicine
DX: E11.10 Type 2 diabetes mellitus with ketoacidosis without coma (principal); N17.9 Acute kidney failure, unspecified; F31.9 Bipolar disorder, unspecified; J43.9 Emphysema, unspecified; F17.200 Nicotine dependence, unspecified, uncomplicated; K52.9 Noninfective gastroenteritis and colitis, unspecified; E86.0 Dehydration; Z53.29 Procedure and treatment not carried out because of patient's decision for other reasons
CPT/HCPCS: 36415; 80048; 80053; 80164; 82805; 82962; 83036; 83690; 83735; 84100; 85025; G0378; J1644; J1815; J7030

== ENCOUNTER 2021-10-10 12:06 | Inpatient (IN) | payer SELFPAY ==
[2021-10-10] MEDS ORDERED: SODIUM CHLORIDE 0.9% 1000 ML 1,000 ML IV ONE ×3 (12:13→19:00)
[2021-10-10] MEDS ORDERED: INSULIN REGULAR, HUMAN 100 UNITS/1 ML SUB-Q ONE (12:13)
--- NOTE | 2021-10-10 13:04 | Emergency Department Report ---
ED General Adult HPI - General Chief complaint: Hyperglycemia Stated complaint: ALTERED MENTAL STATUS Time Seen by Provider: 10/10/21 12:12 Source: patient Mode of arrival: Stretcher Limitations: No Limitations - History of Present Illness Initial comments: patient presents by EMS secondary to altered mental status. He was found to be altered and confused. He was lethargic and minimally responsive per EMS. He does have a history of diabetes and noncompliance. EMS found the patient to have a high glucose which was greater than 599 from their meter. They believe he has DKA. Patient has no history of trauma is reported to EMS. History is obtained from EMS. Symptoms started over the last day or 2. Severity scale (0 -10): 0 - Related Data Home Medications Medication Instructions Recorded Confirmed Last Taken Divalproex Dr [Depakote] 500 mg PO BID 12/14/13 10/10/21 11/30/13 Previous Rx's Medication Instructions Recorded Last Taken Type Cyclobenzaprine [Flexeril 10mg] 10 mg PO TID PRN #20 tablet 02/24/15 Unknown Rx Ibuprofen [Motrin] 800 mg PO Q8H #30 tablet 02/24/15 Unknown Rx traMADoL [Ultram 50 MG tab] 50 mg PO Q6HR PRN #20 tablet 02/24/15 Unknown Rx HYDROcodone/APAP 5-325 [[place] 1 each PO Q4HR PRN #20 tablet 02/19/16 Unknown Rx 5/325] Ibuprofen [Motrin] 600 mg PO Q6H PRN #20 tablet 02/19/16 Unknown Rx Penicillin Vk [Veetids TAB] 500 mg PO QID #40 tablet 02/19/16 Unknown Rx Naproxen [Naproxen TAB] 500 mg PO BID PRN #60 tablet 08/07/17 Unknown Rx cephALEXin [Keflex] 500 mg PO TID #30 capsule 08/07/17 Unknown Rx Acetaminophen/Codeine [Tylenol 1 tab PO Q6H PRN #12 tab 06/07/18 Unknown Rx /Codeine # 3 tab] Sulfamethoxazole/Trimethoprim 1 each PO BID 7 Days #14 tablet 06/07/18 Unknown Rx [Bactrim DS TAB] Allergies Allergy/AdvReac Type Severity Reaction Status Date / Time No Known Allergies Allergy Verified 06/24/15 14:02 ED Review of Systems ROS: Stated complaint: ALTERED MENTAL STATUS Other details as noted in HPI Comment: Unobtainable due to pts medical conditions ED Past Medical Hx - Past Medical History Previous Medical History?: Yes Hx Diabetes: Yes Hx Psychiatric Treatment: Yes (BIPOLAR) Additional medical history: SICKLE CELL TRAIT. emphysema. Cannot be obtained for the patient secondary to altered mental status. This was obtained from EMS and old records reviewed. - Surgical History Past Surgical History?: No - Family History Family history: other ( Cannot be obtained for the patient secondary to altered mental status) - Social History Smoking Status: Current Every Day Smoker (12/13 pack/day) Substance Use Type: Alcohol (Occasional), Marijuana, Methamphetamines (No IVDA) Other Social History: cannot be obtained for the patient secondary to altered mental status. This is obtained from old record review and EMS - Medications Home Medications: Home Medications Medication Instructions Recorded Confirmed Last Taken Type Divalproex Dr [Depakote] 500 mg PO BID 12/14/13 10/10/21 11/30/13 History Cyclobenzaprine [Flexeril 10mg] 10 mg PO TID PRN #20 tablet 02/24/15 10/10/21 Unknown Rx Ibuprofen [Motrin] 800 mg PO Q8H #30 tablet 02/24/15 10/10/21 Unknown Rx traMADoL [Ultram 50 MG tab] 50 mg PO Q6HR PRN #20 tablet 02/24/15 10/10/21 Unknown Rx HYDROcodone/APAP 5-325 [[place] 1 each PO Q4HR PRN #20 tablet 02/19/16 10/10/21 Unknown Rx 5/325] Ibuprofen [Motrin] 600 mg PO Q6H PRN #20 tablet 02/19/16 10/10/21 Unknown Rx Penicillin Vk [Veetids TAB] 500 mg PO QID #40 tablet 02/19/16 10/10/21 Unknown Rx Naproxen [Naproxen TAB] 500 mg PO BID PRN #60 tablet 08/07/17 10/10/21 Unknown Rx cephALEXin [Keflex] 500 mg PO TID #30 capsule 08/07/17 10/10/21 Unknown Rx Acetaminophen/Codeine [Tylenol 1 tab PO Q6H PRN #12 tab 06/07/18 10/10/21 Unknown Rx /Codeine # 3 tab] Sulfamethoxazole/Trimethoprim 1 each PO BID 7 Days #14 tablet 06/07/18 10/10/21 Unknown Rx [Bactrim DS TAB] ED Physical Exam - General Limitations: No Limitations ED Course Vital Signs 10/10/21 10/10/21 12:11 12:27 Temperature 95.6 F L 89.4 F L Pulse Rate 90 Respiratory 20 22 Rate Blood Pressure 93/66 [Left] O2 Sat by Pulse 95 98 Oximetry - Reevaluation(s) Reevaluation #1: 10/10/21 13:04 Glucose have been noted. Old records reviewed. EMS had been met upon arrival. Insulin had been ordered. Reevaluation #2: 10/10/21 14:07 Labs are noted. Insulin drip was started. ED Medical Decision Making - Lab Data Result diagrams: 10/10/21 13:08 10/10/21 13:08 Rhythm strip: Normal sinus rhythm without ectopy per monitor observe 10 seconds. - Medical Decision Making Patient presents with altered mental status. He was found to be hyperglycemic with Kussmaul respirations. He clinically appeared to be dehydrated. He has symptoms that are consistent with diabetic ketoacidosis. Given the hyperglycemia and bicarbonate of 4, I do believe that DKA is the most likely diagnosis. Trigger for this is likely noncompliance as the patient is known to be noncompliant. There is no obvious infectious pathology seen here. Patient will be admitted on an insulin drip. He will be aggressively hydrated. Magnesium is elevated. Potassium can be monitored. Critical Care Time: Yes Critical care attestation.: If time is entered above; I have spent that time in minutes in the direct care of this critically ill patient, excluding procedure time. Critical care time of 45 minutes exclusive of all procedures ED Disposition Clinical Impression: Dehydration, Hypomagnesemia Altered mental status Qualifiers: Altered mental status type: stupor Qualified Code(s): R40.1 - Stupor DKA, type 1 Qualifiers: Diabetes mellitus complication detail: with coma Qualified Code(s): E10.11 - Type 1 diabetes mellitus with ketoacidosis with coma Disposition: ADMITTED INPATIENT Is pt being admited?: Yes Condition: Stable Instructions: Diabetes Mellitus Type 2 in Adults (ED) Referrals: PRIMARY CARE, [Primary Care Provider] - 3-5 Days
[2021-10-10 13:35] LABS: Basophils % (Auto) 0.3 % (0.0-1.8); Eosinophils % (Auto) 0.1 % (0.0-4.3); Lymphocytes # (Auto) 1.1 K/mm3 (1.2-5.4); Lymphocytes % (Auto) 20.1 % (13.4-35.0); Mean Corpuscular HGB Conc 26 % (32-34); Mean Corpuscular Volume 101 fl (84-94); Monocytes # (Auto) 0.2 K/mm3 (0.0-0.8); Monocytes % (Auto) 2.8 % (0.0-7.3); Platelet Count 219 K/mm3 (140-440); Red Blood Count 5.27 M/mm3 (3.65-5.03)
[2021-10-10 13:47] LABS: Hematocrit 53.3 % (35.5-45.6); Hemoglobin 14.1 gm/dl (11.8-15.2); Red Cell Distribution Width 20.8 % (13.2-15.2)
[2021-10-10 14:00] LABS: Blood Urea Nitrogen 58 mg/dL (9-20); Calcium 9.8 mg/dL (8.4-10.2); Hemolysis Index 7
[2021-10-10 14:01] LABS: BUN/Creatinine Ratio 15
[2021-10-10] MEDS ORDERED: oxyCODONE /ACETAMINOPHEN 5-325MG TAB PO PRN (14:04)
[2021-10-10] MEDS ORDERED: ALBUTEROL 2.5 MG/3 ML NEBU IH PRN (14:04)
[2021-10-10] MEDS ORDERED: DEXTROSE 50% IN WATER (25GM) 50 ML SYRINGE IV PRN ×2 (14:04→14:05)
[2021-10-10] MEDS ORDERED: HYDROmorphone 1 MG/1 ML INJ IV PRN (14:04)
[2021-10-10] MEDS ORDERED: ACETAMINOPHEN 325 MG TAB PO PRN (14:04)
[2021-10-10] MEDS ORDERED: SODIUM CHLORIDE 0.9% 1000 ML 3,000 ML IV ONE (14:15)
[2021-10-10] MEDS ORDERED: INSULIN REGULAR, HUMAN 100 UNITS in SODIUM CHLORIDE 0.9% 99 ML IV SCH (15:00)
[2021-10-10 15:07] LABS: BUN/Creatinine Ratio 15; Blood Urea Nitrogen 56 mg/dL (9-20); Calcium 9.3 mg/dL (8.4-10.2); Hemolysis Index 28
--- NOTE | 2021-10-10 15:37 | History and Physical Report ---
History of Present Illness Date of admission: 10/10/21 14:04 Chief complaint: His blood sugar is out of control History of present illness: 46 YO Male with DM, Medication and Dietary Noncompliance, Nicotine Dependence presents ED for evaluation. Patient is confused and lethargic the time my evaluation and is unable to provide detailed history. History taken from EMS staff ED staff as well as the patient's mother who was made available by telephone for interview. As per mother the patient has had high blood sugar levels and is noncompliant with medication. The patient was found to be confused. EMS was notified and upon arrival the patient was found to be in distress and subsequent transported to [facility] for further care and evaluation of the aforementioned symptoms. The patient was seen and evaluated in the emergency department. All lab and imaging studies reviewed. Patient found to have diabetic ketoacidosis, complicated by metabolic acidosis, and metabolic encephalopathy, acute kidney injury, and volume depletion. Patient admitted to ICU and initiated on DKA protocol. No further history is obtainable. No prior admission for review. all medication listed at time of admission has been reconciled. Advanced care planning conducted in ED. Past History Past Medical History: diabetes Past Surgical History: No surgical history, Other (reviewed) Social history: single, smoking Family history: diabetes, hypertension Medications and Allergies Allergies Allergy/AdvReac Type Severity Reaction Status Date / Time No Known Allergies Allergy Verified 06/24/15 14:02 Home Medications Medication Instructions Recorded Confirmed Last Taken Type Divalproex Dr [Depakote] 500 mg PO BID 12/14/13 10/10/21 11/30/13 History Cyclobenzaprine [Flexeril 10mg] 10 mg PO TID PRN #20 tablet 02/24/15 10/10/21 Unknown Rx Ibuprofen [Motrin] 800 mg PO Q8H #30 tablet 02/24/15 10/10/21 Unknown Rx traMADoL [Ultram 50 MG tab] 50 mg PO Q6HR PRN #20 tablet 02/24/15 10/10/21 Unknown Rx HYDROcodone/APAP 5-325 [[place] 1 each PO Q4HR PRN #20 tablet 02/19/16 10/10/21 Unknown Rx 5/325] Ibuprofen [Motrin] 600 mg PO Q6H PRN #20 tablet 02/19/16 10/10/21 Unknown Rx Penicillin Vk [Veetids TAB] 500 mg PO QID #40 tablet 02/19/16 10/10/21 Unknown Rx Naproxen [Naproxen TAB] 500 mg PO BID PRN #60 tablet 08/07/17 10/10/21 Unknown Rx cephALEXin [Keflex] 500 mg PO TID #30 capsule 08/07/17 10/10/21 Unknown Rx Acetaminophen/Codeine [Tylenol 1 tab PO Q6H PRN #12 tab 06/07/18 10/10/21 Unknown Rx /Codeine # 3 tab] Sulfamethoxazole/Trimethoprim 1 each PO BID 7 Days #14 tablet 06/07/18 10/10/21 Unknown Rx [Bactrim DS TAB] Active Meds: Active Medications Acetaminophen (Acetaminophen 325 Mg Tab) 650 mg PO Q6H PRN PRN Reason: Pain MILD(1-3)/Fever >100.5/WATSON Albuterol (Albuterol 2.5 Mg/3 Ml Nebu) 2.5 mg IH Q3HRT PRN PRN Reason: Shortness Of Breath Dextrose (Dextrose 50% In Water (25gm) 50 Ml Syringe) 0 ml IV Q30MIN PRN; Protocol PRN Reason: Hypoglycemia Divalproex Sodium (Divalproex Dr 500 Mg Tab) 500 mg PO BID JUAN JOSÉ Hydromorphone HCl (Hydromorphone 1 Mg/1 Ml Inj) 0.5 mg IV Q23H PRN PRN Reason: Pain , Severe (7-10) Insulin Human Regular 100 (units/ Sodium Chloride) 100 mls @ 5 mls/hr IV TITR JUAN JOSÉ; Protocol Sodium Chloride (Nacl 0.9% 1000 Ml) 3,000 mls @ 999 mls/hr IV BOLUS ONE Stop: 10/10/21 17:15 Last Admin: 10/10/21 14:28 Dose: 999 mls/hr Documented by: Sodium Chloride (Nacl 0.9% 1000 Ml) 1,000 mls @ 150 mls/hr IV DIRECT JUAN JOSÉ Oxycodone/Acetaminophen (Oxycodone /Acetaminophen 5-325mg Tab) 1 tab PO Q16H PRN PRN Reason: Pain, Moderate (4-6) Sodium Bicarbonate (Sodium Bicarb 8.4% 50 Meq/50 Ml Syringe) 50 meq IV QID JUAN JOSÉ Stop: 10/11/21 14:01 Sodium Chloride (Sodium Chloride 0.9% 10 Ml Flush Syringe) 10 ml IV BID JUAN JOSÉ Sodium Chloride (Sodium Chloride 0.9% 10 Ml Flush Syringe) 10 ml IV PRN PRN PRN Reason: LINE FLUSH Review of Systems ROS unobtainable: due to mental status Exam - Constitutional Vitals: Temp Pulse Resp BP Pulse Ox 91 F L 107 H 20 91/58 98 10/10/21 15:15 10/10/21 15:15 10/10/21 15:15 10/10/21 15:15 10/10/21 15:15 General appearance: Present: mild distress - EENT Eyes: Present: PERRL ENT: clear oral mucosa, hearing decreased - Neck Neck: Present: supple, normal ROM - Respiratory Respiratory effort: normal Respiratory: bilateral: CTA - Cardiovascular Heart Sounds: Present: S1 & S2. Absent: rub, click - Extremities Extremities: pulses symmetrical, No edema Peripheral Pulses: within normal limits - Abdominal General gastrointestinal: Present: soft, non-tender, non-distended, normal bowel sounds Male genitourinary: Present: normal - Integumentary Integumentary: Present: dry, clammy, decreased turgor - Musculoskeletal Musculoskeletal: generalized weakness - Psychiatric Psychiatric: no appropriate mood/affect, no intact judgment & insight, no memory intact - Neurologic Neurologic: CNII-XII intact, moves all extremities Results - Labs CBC & Chem 7: 10/10/21 15:37 10/10/21 17:02 Labs: Abnormal lab results 10/10/21 10/10/21 10/10/21 Range/Units 12:20 13:08 13:08 RBC 5.27 H (3.65-5.03) M/mm3 Hct 53.3 H (35.5-45.6) % MCV 101 H (84-94) fl MCH 27 L (28-32) pg MCHC 26 L (32-34) % RDW 20.8 H (13.2-15.2) % Lymph # (Auto) 1.1 L (1.2-5.4) K/mm3 Seg Neutrophils % 76.7 H (40.0-70.0) % VBG pH (7.320-7.420) Potassium 5.3 H (3.6-5.0) mmol/L Chloride 89.3 L (98-107) mmol/L Carbon Dioxide 4 L* (22-30) mmol/L BUN 58 H (9-20) mg/dL Creatinine 4.0 H (0.8-1.3) mg/dL Glucose (75-100) mg/dL POC Glucose 539 H (70-105) mg/dL Phosphorus (2.5-4.5) mg/dL Magnesium 4.20 H (1.7-2.3) mg/dL 10/10/21 10/10/21 10/10/21 Range/Units 13:08 14:23 14:23 RBC (3.65-5.03) M/mm3 Hct (35.5-45.6) % MCV (84-94) fl MCH (28-32) pg MCHC (32-34) % RDW (13.2-15.2) % Lymph # (Auto) (1.2-5.4) K/mm3 Seg Neutrophils % (40.0-70.0) % VBG pH 6.952 L* (7.320-7.420) Potassium (3.6-5.0) mmol/L Chloride 90.6 L (98-107) mmol/L Carbon Dioxide 6 L* (22-30) mmol/L BUN 56 H (9-20) mg/dL Creatinine 3.7 H (0.8-1.3) mg/dL Glucose 1682 H* (75-100) mg/dL POC Glucose (70-105) mg/dL Phosphorus 12.00 H (2.5-4.5) mg/dL Magnesium 3.80 H (1.7-2.3) mg/dL Assessment and Plan - Patient Problems (1) DKA (diabetic ketoacidosis) Current Visit: No Status: Acute Qualifiers: Diabetes mellitus type: type 1 Plan to address problem: DKA protocol: Insulin drip, IV fluid resuscitation therapy, monitor urine output every shift, serial BMP, monitor anion gap, potassium repletion as per protocol The high probability of a clinically significant, sudden or life threatening deterioration of the [neuro, endocrine] system(s) required my full and direct attention, intervention and personal management. The aggregate critical care time was [65] minutes. This time is in addition to time spent performing reported procedures but includes the following: [x] Data Review and interpretation [x] Patient assessment and monitoring of vital signs [x] Documentation [x] Medication orders and management (2) Metabolic encephalopathy Current Visit: Yes Status: Acute Plan to address problem: Neurochecks, supportive care, treat DKA, IV fluid resuscitation therapy. (3) Dehydration Current Visit: Yes Status: Acute Plan to address problem: IV fluid resuscitation therapy, BMP, repeat BMP in a.m. monitor fluid balance. (4) Acute kidney injury Current Visit: No Status: Acute Plan to address problem: BMP, IV fluid resuscitation therapy, repeat BMP in a.m. to monitor serum creatinine as well as GFR. (5) DVT prophylaxis Current Visit: No Status: Acute Plan to address problem: SCD to bilateral lower extremities while in bed (6) Advance care planning Current Visit: Yes Status: Acute Plan to address problem: Disease education conducted, care plan discussed, diagnoses discussed, patient is full code, patient's mother knowledges understanding and agreement with care plan, +30 minutes.
[2021-10-10] MEDS: INSULIN REGULAR, HUMAN 100 UNITS in SODIUM CHLORIDE 0.9% 99 ML IV SCH (16:39)
[2021-10-10] MEDS: NORepinephrine/NS 8 MG-250 ML 8 MG/250 ML INFUS..BTL IV SCH (16:40)
[2021-10-10] MEDS: SODIUM BICARB 8.4% 50 MEQ/50 ML SYRINGE IV SCH ×2 (16:45→22:23)
[2021-10-10 17:14] LABS: Calcium 8.9 mg/dL (8.4-10.2); Mean Corpuscular HGB Conc 28 % (32-34); Mean Corpuscular Volume 96 fl (84-94); Platelet Count 193 K/mm3 (140-440); Red Blood Count 5.31 M/mm3 (3.65-5.03)
[2021-10-10 17:17] LABS: Hematocrit 51.1 % (35.5-45.6); Red Cell Distribution Width 20.5 % (13.2-15.2)
[2021-10-10 17:19] LABS: Calcium 8.8 mg/dL (8.4-10.2)
[2021-10-10 17:20] LABS: Hemoglobin 14.3 gm/dl (11.8-15.2)
[2021-10-10] MEDS: SODIUM CHLORIDE 0.9% 1000 ML 1,000 ML IV SCH ×2 (17:30→19:15)
[2021-10-10] MEDS ORDERED: SODIUM BICARB 8.4% 50 MEQ/50 ML SYRINGE IV ONE (18:00)
[2021-10-10 18:49] LABS: ABG Base Excess -11.1 mmol/L (-2.0-3.0); ABG HCO3 13.3 mmol/L (20.0-26.0); ABG Methemoglobin 0.6 % (0.0-1.5); ABG Oxygen Saturation 97.3 % (95.0-99.0); ABG PCO2 26.5 mm Hg; ABG PH 7.318 pH Units (7.350-7.450); ABG PO2 98.6 mm Hg (80.0-90.0)
--- NOTE | 2021-10-10 19:02 | Consultation ---
History of Present Illness Consult date: 10/10/21 Requesting physician: JALEN ANGUIANO Reason for consult: other (Shock (septic vs Hypovolemic); DKA) History of present illness: PULMONARY/CCM CONSULT NOTE (Full dictation # [id number]) Please see dictated notes for full details Past History Past Medical History: diabetes Past Surgical History: No surgical history, Other (reviewed) Social history: single, smoking Family history: diabetes, hypertension Medications and Allergies Allergies Allergy/AdvReac Type Severity Reaction Status Date / Time No Known Allergies Allergy Verified 06/24/15 14:02 Home Medications Medication Instructions Recorded Confirmed Last Taken Type Divalproex Dr [Depakote] 500 mg PO BID 12/14/13 10/10/21 11/30/13 History Cyclobenzaprine [Flexeril 10mg] 10 mg PO TID PRN #20 tablet 02/24/15 10/10/21 Unknown Rx Ibuprofen [Motrin] 800 mg PO Q8H #30 tablet 02/24/15 10/10/21 Unknown Rx traMADoL [Ultram 50 MG tab] 50 mg PO Q6HR PRN #20 tablet 02/24/15 10/10/21 Unknown Rx HYDROcodone/APAP 5-325 [[place] 1 each PO Q4HR PRN #20 tablet 02/19/16 10/10/21 Unknown Rx 5/325] Ibuprofen [Motrin] 600 mg PO Q6H PRN #20 tablet 02/19/16 10/10/21 Unknown Rx Penicillin Vk [Veetids TAB] 500 mg PO QID #40 tablet 02/19/16 10/10/21 Unknown Rx Naproxen [Naproxen TAB] 500 mg PO BID PRN #60 tablet 08/07/17 10/10/21 Unknown Rx cephALEXin [Keflex] 500 mg PO TID #30 capsule 08/07/17 10/10/21 Unknown Rx Acetaminophen/Codeine [Tylenol 1 tab PO Q6H PRN #12 tab 06/07/18 10/10/21 Unknown Rx /Codeine # 3 tab] Sulfamethoxazole/Trimethoprim 1 each PO BID 7 Days #14 tablet 06/07/18 10/10/21 Unknown Rx [Bactrim DS TAB] Active Meds: Active Medications Acetaminophen (Acetaminophen 325 Mg Tab) 650 mg PO Q6H PRN PRN Reason: Pain MILD(1-3)/Fever >100.5/[place] Albuterol (Albuterol 2.5 Mg/3 Ml Nebu) 2.5 mg IH Q3HRT PRN PRN Reason: Shortness Of Breath Dextrose (Dextrose 50% In Water (25gm) 50 Ml Syringe) 0 ml IV Q30MIN PRN; Protocol PRN Reason: Hypoglycemia Divalproex Sodium (Divalproex Dr 500 Mg Tab) 500 mg PO BID JUAN JOSÉ Hydromorphone HCl (Hydromorphone 1 Mg/1 Ml Inj) 0.5 mg IV Q23H PRN PRN Reason: Pain , Severe (7-10) Insulin Human Regular 100 (units/ Sodium Chloride) 100 mls @ 5 mls/hr IV TITR JUAN JOSÉ; Protocol Last Titration: 10/10/21 18:07 Dose: 16 units/hr, 16 mls/hr Documented by: Sodium Chloride (Nacl 0.9% 1000 Ml) 1,000 mls @ 150 mls/hr IV DIRECT JUAN JOSÉ Last Admin: 10/10/21 17:30 Dose: 150 mls/hr Documented by: NORepinephrine/NS 8 MG-250 ML (Norepinephrine/Ns 8 Mg-250 Ml (Double Conc)) 8 mg in 250 mls @ 3.75 mls/hr IV TITRATE JUAN JOSÉ; Protocol Last Titration: 10/10/21 17:25 Dose: 8 mcg/min, 15 mls/hr Documented by: Oxycodone/Acetaminophen (Oxycodone /Acetaminophen 5-325mg Tab) 1 tab PO Q16H PRN PRN Reason: Pain, Moderate (4-6) Sodium Bicarbonate (Sodium Bicarb 8.4% 50 Meq/50 Ml Syringe) 50 meq IV QID JUAN JOSÉ Stop: 10/11/21 14:01 Last Admin: 10/10/21 16:45 Dose: 50 meq Documented by: Sodium Chloride (Sodium Chloride 0.9% 10 Ml Flush Syringe) 10 ml IV BID JUAN JOSÉ Sodium Chloride (Sodium Chloride 0.9% 10 Ml Flush Syringe) 10 ml IV PRN PRN PRN Reason: LINE FLUSH Physical Examination Vital signs: Vital Signs Temp Pulse Resp BP Pulse Ox 95.6 F L 90 20 93/66 95 10/10/21 12:11 10/10/21 12:11 10/10/21 12:11 10/10/21 12:10/10/21 12:11 Results - Laboratory Findings CBC and BMP: 10/10/21 15:37 10/10/21 17:02 ABG ABG pH 7.318 pH Units (7.350-7.450) L 10/10/21 18:46 ABG pCO2 26.5 mm Hg 10/10/21 18:46 ABG pO2 98.6 mm Hg (80.0-90.0) H 10/10/21 18:46 ABG O2 Saturation 97.3 % (95.0-99.0) 10/10/21 18:46 Abnormal lab findings: Abnormal Labs 10/10/21 10/10/21 10/10/21 12:20 13:08 13:08 WBC RBC 5.27 H Hct 53.3 H MCV 101 H MCH 27 L MCHC 26 L RDW 20.8 H Lymph # (Auto) 1.1 L Seg Neutrophils % 76.7 H ABG pH ABG pO2 ABG HCO3 ABG Base Excess ABG Hemoglobin VBG pH Potassium 5.3 H Chloride 89.3 L Carbon Dioxide 4 L* BUN 58 H Creatinine 4.0 H Glucose POC Glucose 539 H Phosphorus Magnesium 4.20 H 10/10/21 10/10/21 10/10/21 13:08 14:23 14:23 WBC RBC Hct MCV MCH MCHC RDW Lymph # (Auto) Seg Neutrophils % ABG pH ABG pO2 ABG HCO3 ABG Base Excess ABG Hemoglobin VBG pH 6.952 L* Potassium Chloride 90.6 L Carbon Dioxide 6 L* BUN 56 H Creatinine 3.7 H Glucose 1682 H* POC Glucose Phosphorus 12.00 H Magnesium 3.80 H 10/10/21 10/10/21 10/10/21 15:37 15:37 16:39 WBC 3.4 L RBC 5.31 H Hct 51.1 H MCV 96 H MCH 27 L MCHC 28 L RDW 20.5 H Lymph # (Auto) Seg Neutrophils % ABG pH ABG pO2 ABG HCO3 ABG Base Excess ABG Hemoglobin VBG pH Potassium 5.5 H Chloride 94.6 L Carbon Dioxide 5 L* BUN 57 H Creatinine 3.6 H Glucose 1608 H* POC Glucose > 600 H Phosphorus Magnesium 10/10/21 10/10/21 10/10/21 16:41 17:02 18:07 WBC RBC Hct MCV MCH MCHC RDW Lymph # (Auto) Seg Neutrophils % ABG pH ABG pO2 ABG HCO3 ABG Base Excess ABG Hemoglobin VBG pH Potassium 5.6 H Chloride Carbon Dioxide 7 L* BUN 56 H Creatinine 4.0 H Glucose 1476 H* POC Glucose > 600 H > 600 H Phosphorus Magnesium 10/10/21 18:46 WBC RBC Hct MCV MCH MCHC RDW Lymph # (Auto) Seg Neutrophils % ABG pH 7.318 L ABG pO2 98.6 H ABG HCO3 13.3 L ABG Base Excess -11.1 L ABG Hemoglobin 13.7 L VBG pH Potassium Chloride Carbon Dioxide BUN Creatinine Glucose POC Glucose Phosphorus Magnesium
[2021-10-10] MEDS ORDERED: SODIUM BICARBONATE 100 MEQ in WATER FOR INJECTION (PF) 1,000 ML IV SCH (20:00)
[2021-10-10 20:16] LABS: Bacteria,Urine 1+ /HPF (Negative); Bilirubin,Urine NEG (Negative); Blood,Urine SM (Negative); Color,Urine Yellow (Yellow); Mucus,Urine FEW /HPF; Urobilinogen,Urine < 2.0 mg/dL (<2.0)
--- NOTE | 2021-10-10 20:25 | XRay Report ---
CHEST 1 VIEW 10/10/2021 7:52 PM INDICATION / CLINICAL INFORMATION: hypoxemic respiratory failure. COMPARISON: None available. FINDINGS: SUPPORT DEVICES: None. HEART / MEDIASTINUM: No significant abnormality. LUNGS / PLEURA: Suspect mild basilar atelectasis. No dense infiltrate. No pneumothorax. ADDITIONAL FINDINGS: No significant additional findings. IMPRESSION: No significant infiltrate. Signer Name: Abelardo Prakash MD Signed: 10/10/2021 8:20 PM Workstation Name: [id number]
[2021-10-10 21:13] LABS: C-Reactive Protein 2.2 mg/dL (0.00-1.30); Calcium 6.2 mg/dL (8.4-10.2)
[2021-10-10] MEDS ORDERED: INSULIN REGULAR, HUMAN 100 UNITS/1 ML IV ONE (21:45)
[2021-10-10] MEDS: POTASSIUM CHLORIDE 10 MEQ 10 MEQ/100 ML BAG IV SCH ×2 (21:59→23:22)
[2021-10-10] MEDS ORDERED: NACL 0.9%/KCL 20 MEQ 20 MEQ/1,000 ML BAG IV SCH (22:00)
[2021-10-10] MEDS ORDERED: FAMOTIDINE 20 MG/2 ML INJ IV SCH (22:00)
[2021-10-10] MEDS: DIVALPROEX DR 500 MG TAB PO SCH (22:24)
[2021-10-10 23:55] LABS: Calcium 7.8 mg/dL (8.4-10.2)
[2021-10-11] MEDS ORDERED: WATER FOR INJECTION IV SCH (00:30)
[2021-10-11] MEDS ORDERED: [UNRECOGNIZED DRUG - OTHER] IV SCH (00:30)
[2021-10-11] MEDS ORDERED: [UNRECOGNIZED DRUG - OTHER] IV SCH ×2 (00:30)
[2021-10-11] MEDS ORDERED: SODIUM CHLORIDE IV SCH ×3 (00:30)
[2021-10-11] MEDS ORDERED: POTASSIUM CHLORIDE IV SCH ×2 (00:30)
[2021-10-11] MEDS: POTASSIUM CHLORIDE 10 MEQ 10 MEQ/100 ML BAG IV SCH ×4 (00:55→09:00)
[2021-10-11] MEDS: INSULIN REGULAR, HUMAN 100 UNITS in SODIUM CHLORIDE 0.9% 99 ML IV SCH (01:36)
--- NOTE | 2021-10-11 03:54 | Consultation ---
DATE OF CONSULTATION: 10/10/2021 PULMONARY CRITICAL CARE CONSULT NOTE CONSULTING PHYSICIAN: Dr. Jamil Grant. REASON FOR CONSULTATION: Septic versus hypovolemic shock, diabetic ketoacidosis. CHIEF COMPLAINT AND HISTORY OF PRESENT ILLNESS: The patient is a now 46-year-old male with a past medical history significant for a diagnosis of diabetes, reportedly characterized with dietary noncompliance. He came into the Emergency Room, confused, lethargic. According to his mother, who gave most of the history, he had high level blood sugar levels yesterday, he was noncompliant with his medications. He was found confused today. EMS found the patient in distress, brought him to the Emergency Room. They denied any history of trauma as far as the EMS was concerned. Additional medical history includes a history of sickle cell trait and emphysema. Workup in the Emergency Room was indeed consistent with diabetic ketoacidosis and acute kidney injury and intravascular volume depletion and ICU admission was requested. When I stopped by to see him, he remained somnolent, was still hypotensive, on Levophed drip at 8 mcg per minute. As far as I can tell, he has received about 3 liters bolus of normal saline up to this point. I do not have any history of vomiting or overt aspiration. He is a known tobacco user. The above is as much of the history of presentation as I have. PAST MEDICAL HISTORY: Diabetes, tobacco use disorder. PAST SURGICAL HISTORY: Unknown. MEDICATIONS: He was on at the time I stopped by to see him, according to the medication administration record included the following: Tylenol 650 mg p.o. q.6 hours p.r.n. mild pain or fevers, albuterol 2.5 mg nebulized q.3 hours p.r.n. shortness of breath, Depakote 500 mg p.o. b.i.d., Dilaudid 0.5 mg IV q.23 hours, insulin drip was going at 5 units per hour. Levophed was going at 8 mcg per minute, Percocet 5/325 one tablet p.o. q.6 hours p.r.n. moderate pain. Sodium bicarbonate 50 mg IV q.i.d. for 4 doses. ALLERGIES: No known drug allergies. DIET: Thin, cachectic gentleman, acute weight loss or gain history is unknown. FAMILY AND SOCIAL HISTORY: Lives in the community, I believe, with his mother. He has a history of tobacco use/abuse, unable to quantify right now. There is a family history of diabetes and hypertension. Alcohol or illicit drug use or abuse history is unknown. REVIEW OF SYSTEMS: Unobtainable secondary to patient's medical and mental condition. Since he has been here, no gross hematochezia or melena, no gross hematuria, no hematemesis, no hemoptysis, no witnessed seizures. No bloody tracheal secretions. Review of systems otherwise unobtainable or as in the body of the history above. PHYSICAL EXAMINATION: VITAL SIGNS: At presentation in the Emergency Room revealed vital signs show that he was hypothermic, initial temperature was 95.6 degrees Fahrenheit. Again on the presentation, temperature 95.6 degrees Fahrenheit, pulse of 90, respiratory rate of 20, blood pressure 93/66, O2 sats were 95%, inspired oxygen concentration at that time was not recorded. Low temperature of 89.4 degrees Fahrenheit. GENERAL: He is a middle-aged, chronically ill looking male. Normocephalic, atraumatic. Resting in bed with mildly increased respiratory effort. HEENT: Anicteric. No conjunctival erythema. Oropharynx was dry. NECK: No jugular venous distention, no thyromegaly. Grossly, there were no palpable lymph nodes in the supraclavicular or submandibular lymph node chains. LUNGS: Auscultation of both lung [place] unremarkable. Lungs are clear to auscultation bilaterally, no wheezing. HEART: Sounds 1 and 2 are heard, regular rate and rhythm without overt rubs or murmurs. He had tachycardia in the 120s. ABDOMEN: Soft, flat. Bowel sounds are positive, nontender, no palpable hepatosplenomegaly. EXTREMITIES: Without overt digital clubbing or cyanosis, no pedal edema. Pedal pulses 1+ bilaterally. NEUROLOGIC: Pupils are equal, round, about 3 mm, reactive to light. Extraocular muscle movements are intact. He moves all 4 extremities spontaneously. He is very weak. SKIN: Poor turgor in the areas examined without overt cellulitis or rash. Please see the wound care nurse's notes for full description of his skin. PSYCHIATRIC: Mood and affect were flat. He had very poor judgment and insight. LABORATORY DATA: From my review is as follows: White cell count 3400, hemoglobin 14.3, hematocrit 51.1, platelet count 193. No manual differential. An arterial blood gas showed a pH of 7.32, pCO2 of 27, pO2 of 99 on 30% FiO2 that was about 2 hours ago. Venous pH at presentation showed a pH of 6.95. Serum sodium was 142, potassium 5.5, chloride 95, bicarbonate was 5. BUN was 57, creatinine was 3.6, glucose was 1608. Phosphorus 12. Magnesium 3.80. Serum creatinine is up to 4.0. No microbiology studies for my review. No radiographic studies for my review. ASSESSMENT: 1. Acute hypoxemic respiratory failure. 2. Hypovolemic shock. 3. Possible septic shock. 4. Diabetic ketoacidosis. 5. Acute kidney injury. 6. Leukopenia. 7. Severe metabolic acidosis. 8. Hyperkalemia. 9. Acute toxic metabolic encephalopathy 10. Tobacco use disorder. PLAN: I have evaluated his internal jugular vein with ultrasound, I can hardly even see it just from touching the skin without any pressure on the ultrasound probe and this is when he is in the Trendelenburg position he is significantly intravascular volume depleted. I have asked the nursing staff to bolus him another 2 liters of normal saline and we will continue to aggressively volume resuscitation. He is currently on 8 mcg per minute of Levophed. I do believe we should be able to get him off the Levophed shortly with adequate volume resuscitation. I will get a serum lactic acid level and trend as necessary. I am going to get 2 sets of blood cultures on this gentleman, also get urinalysis as well as urine electrolytes and in light of his acute kidney injury, urinalysis in case of an occult sepsis, especially with leukopenia, I will be ordering procalcitonin levels and CRP levels. I will get a stat chest x-ray to evaluate his hypoxemia a little bit better. Consideration will be given for empiric antibiotics, in particular if he does not respond to resuscitation or if there is evidence of a possible source of infection on the chest x-ray for example. He has been started on the DKA protocol and that will be followed. Electrolytes will be followed, monitored and replaced as necessary. I will get urine electrolytes to see if we are dealing with a prerenal kind of picture or there is a component of an intrinsic renal disease. Nephrology evaluation will be at the behest of the attending physician. I will start him on sodium bicarbonate drip in sterile water, 3 amps of sodium bicarbonate per liter of sterile water, and run that in a separate IV line at about 100 per hour for 2 liters while we continue the DKA protocol with the other line. Oxygen will be weaned to keep sats greater than or equal to about 90%. Aspiration precautions will be maintained. He will be placed on GI and DVT prophylaxis. Flu and pneumonia vaccination will be addressed per protocol. Introduction of a central line will be technically difficult. He has 2 large bore IVs at this time and we will continue to run the Levophed and volume resuscitate him aggressively. I want to avoid placement of the femoral line in this gentleman who is on 8 mcg of Levophed and intravascular volume depleted. Thank you very much for the consult, Dr. Grant. We will follow along and make further recommendations as picture progresses/becomes clearer. He is critically ill on life-sustaining interventions including vasopressors at very high risk of from cardiopulmonary and endocrine system decompensation. At this time, I spent about 35 minutes of critical care without overt lap and excluding any procedural time that may be necessary. TID: [id number] RECEIPT: [id number] [facility]
[2021-10-11 05:08] LABS: Hematocrit 35.5 % (35.5-45.6); Hemoglobin 11.7 gm/dl (11.8-15.2); Mean Corpuscular HGB Conc 33 % (32-34); Mean Corpuscular Volume 82 fl (84-94); Platelet Count 131 K/mm3 (140-440); Red Blood Count 4.36 M/mm3 (3.65-5.03); Red Cell Distribution Width 18.9 % (13.2-15.2)
[2021-10-11 06:12] LABS: Calcium 7.8 mg/dL (8.4-10.2)
[2021-10-11 06:26] LABS: Band Neutrophils # (Manual) 0.2 K/mm3; Myelocytes # (Manual) 0.4 K/mm3; Total Cells Counted 100
[2021-10-11 06:28] LABS: Hypochromasia 1+; Large Platelets Few; Platelet Estimate Consistent w Auto; Toxic Granulation 1+
--- NOTE | 2021-10-11 06:28 | Event Note ---
Date: 10/11/21 Nephrology consult placed for hyponatremia, patiently on 12/03 NS 30meq K @125 ml/hr
[2021-10-11] MEDS ORDERED: LACTATED RINGERS 1,000 ML IV ONE ×2 (07:45→17:14)
[2021-10-11 07:48] LABS: Albumin 2.7 g/dL (3.9-5); Calcium 7.9 mg/dL (8.4-10.2)
[2021-10-11] MEDS: LACTATED RINGERS 1,000 ML IV SCH ×2 (08:48→13:10)
[2021-10-11] MEDS ORDERED: POTASSIUM PHOSPHATE 30 MMOL in SODIUM CHLORIDE 0.9% 500 ML 500 ML IV SCH (09:00)
[2021-10-11] MEDS: SODIUM BICARB 8.4% 50 MEQ/50 ML SYRINGE IV SCH ×2 (10:00→14:38)
[2021-10-11] MEDS ORDERED: CEFEPIME/NS 2 GM/100 ML 2 GM/100 ML BAG IV STA (10:02)
[2021-10-11] MEDS ORDERED: VASOPRESSIN 20 UNIT in SODIUM CHLORIDE 0.9% 100 ML IV SCH (11:00)
[2021-10-11] MEDS ORDERED: VANCOMYCIN 1,500 MG in SODIUM CHLORIDE 0.9% 500 ML 500 ML IV SCH (11:00)
[2021-10-11] MEDS: NORepinephrine/NS 8 MG-250 ML 8 MG/250 ML INFUS..BTL IV SCH ×2 (11:19→21:57)
[2021-10-11] MEDS: INSULIN LISPRO 100 UNIT/ML SUB-Q SCH ×2 (11:30→16:46)
--- NOTE | 2021-10-11 13:41 | Progress Note ---
Assessment and Plan Assessment and plan: This is a [id number] male with a past medical of DM, Nicotine Dependence, and medication and dietary noncompliance who presented with confusion and lethargy. Patient was found to be in sepstic, in DKA, and SONAM. Patient was admitted into the ICU for further management. Hospital Course to Date: 10/11/21- Patient awake but still disoriented, on 2L NC SPO2 95 to 100%. Patient is no longer on insulin gtt, passed bedside swallow, will ordered clear liquid diet for now then advance diet as tolerated. SSI and basal insulin added. Lactic acidosis worsen, patient is leukopenic and hypothermic. UA is unremarkable, b.cultX2 is pending, continue IVF was adjusted, and empiric IV abx was initiated. Continue to monitor renal function and electrolytes, replete as needed. Assessment and Plan #Acute Metabolic Encephalopathy - Patient is more alert today - Remains confused but calm - Continue Depakote BID - Avoid benzodiazepine to reduce the possibility of delirium - Maintenance of sleep-wake cycle #Hypotension #Tachycardia #Sepsis #Hypovolemic Shock #Metabolic Acidosis - ST on the monitor, HR in the 130s - On vasopressors - S/p multiple IV boluses - Maintain adequate perfusion - Continue rehydration with cont. IVF - Continue blood pressure monitor per protocol - Maintain MAP above 65 - SCDs for VTE proph #Acute hypoxemic respiratory failure - Patient was on RA at home - Possibly due to severe acidosis - 10/10 CXR with no significant infiltrate - On 2L NC SPO2 95 to 100% - Last night ABG noted - CCM consulted, appreciate recommendations - Aspiration precaution HOB above 30 - PRN ABG and CXR - Continue SPO2 monitoring for SPO2 goal above 92% #GI: Malnutrition - Patient transitioned to SubQ insulin - Pass bedside swallow - Will advance diet as tolerated - Continue PPI- Pepcid - BR added #Acute Kidney Injury probably Vasomotor Nephropathy #Sepsis #Hypovolemic Shock #Electrolytes Imbalance - Baseline cr. is unknown, Scr. is as high as 4 - Scr. downtrending, 2.0 this am - 10/10 FENa 0.8%, pre-renal - s/p multiple IV Boluses - Nephrology consulted, pending recs - Strict intake and output - Avoid nephrotoxic medications; Renally dose medications - Rodrigez in place - Continue rehydration with cont. IVF - Monitor and replace electrolytes as needed #Sepsis #Lactic Acidosis #Metabolic Acidosis - Lactic acid as high as 7.3 this am - Hypothermic and Leukopenic, WBCs 3.2 -10/10 CXR with no significant infiltrate - UA is unremarkable, B.cultX2 pending - Procal 22.83 - S/p multiple IV boluses - Patient remains on high dose pressors - Empiric IV was initiated - Maintain adequate perfusion - Continue rehydration with cont. IVF - Continue to F/U on B.cult - Daily CBC monitoring - Consider ID consult if symptoms persist #DKA - BG as high as 1682 - DKA protocol was initiated - A1C pending - Off insulin this am, transitioned to SUBQ - SSI ACHS - Basal, 5unit Lantus added - While critically ill target blood glucose of 140-180 - Avoid hypoglycemia The high probability of a clinically significant, sudden or life threatening deterioration of the [multiple] system(s) required my full and direct attention, intervention and personal management. The aggregate critical care time was [60] minutes. This time is in addition to time spent performing reported procedures but includes the following: [x] Data Review and interpretation [x] Patient assessment and monitoring of vital signs [x] Documentation [x] Medication orders and management Disposition Plan: ICU Total Time Spent with Patient (Minutes): 60 History Interval history: Patient seen and examined at the bedside. More awake this morning, on 2L NC. Patient is no longer on insulin gtt but remains on high dose pressors despite aggressive IVF resuscitation. EMMA overnight Hospitalist Physical - Constitutional Vitals: Temp Pulse Resp BP Pulse Ox 98.4 F 133 H 29 H 142/68 100 10/11/21 12:00 10/11/21 13:00 10/11/21 13:00 10/11/21 13:00 10/11/21 12:45 General appearance: Present: no acute distress, mild distress, cachectic - EENT Eyes: Present: PERRL, EOM intact ENT: hearing intact - Neck Neck: Present: normal ROM - Respiratory Respiratory effort: normal Respiratory: bilateral: diminished - Cardiovascular Rhythm: regular Heart Sounds: Present: S1 & S2 - Extremities Extremities: no ischemia, pulses intact, pulses symmetrical Peripheral Pulses: within normal limits - Abdominal General gastrointestinal: soft, non-tender, normal bowel sounds - Integumentary Integumentary: Present: clear, warm, dry - Psychiatric Psychiatric: appropriate mood/affect, cooperative - Neurologic Neurologic: CNII-XII intact, moves all extremities - Allied Health Allied health notes reviewed: nursing Results - Labs CBC & Chem 7: 10/11/21 04:15 10/11/21 13:20 Labs: Laboratory Last Values WBC 3.2 K/mm3 (4.5-11.0) L 10/11/21 04:15 RBC 4.36 M/mm3 (3.65-5.03) 10/11/21 04:15 Hgb 11.7 gm/dl (11.8-15.2) L 10/11/21 04:15 Hct 35.5 % (35.5-45.6) D 10/11/21 04:15 MCV 82 fl (84-94) L 10/11/21 04:15 MCH 27 pg (28-32) L 10/11/21 04:15 MCHC 33 % (32-34) 10/11/21 04:15 RDW 18.9 % (13.2-15.2) H 10/11/21 04:15 Plt Count 131 K/mm3 (140-440) L 10/11/21 04:15 Lymph % (Auto) 20.1 % (13.4-35.0) 10/10/21 13:08 Pepin % (Auto) 2.8 % (0.0-7.3) 10/10/21 13:08 Eos % (Auto) 0.1 % (0.0-4.3) 10/10/21 13:08 Baso % (Auto) 0.3 % (0.0-1.8) 10/10/21 13:08 Lymph # (Auto) 1.1 K/mm3 (1.2-5.4) L 10/10/21 13:08 Pepin # (Auto) 0.2 K/mm3 (0.0-0.8) 10/10/21 13:08 Eos # (Auto) 0.0 K/mm3 (0.0-0.4) 10/10/21 13:08 Baso # (Auto) 0.0 K/mm3 (0.0-0.1) 10/10/21 13:08 Add Manual Diff Complete 10/11/21 04:15 Total Counted 100 10/11/21 04:15 Seg Neutrophils % Medical Administrative Technician 10/11/21 04:15 Seg Neuts % (Manual) 67.0 % (40.0-70.0) 10/11/21 04:15 Band Neutrophils % 5.0 % 10/11/21 04:15 Lymphocytes % (Manual) 13.0 % (13.4-35.0) L 10/11/21 04:15 Metamyelocytes % 3.0 % 10/11/21 04:15 Myelocytes % 12.0 % 10/11/21 04:15 Nucleated RBC % Not Reportable 10/11/21 04:15 Seg Neutrophils # 4.2 K/mm3 (1.8-7.7) 10/10/21 13:08 Seg Neutrophils # Man 2.1 K/mm3 (1.8-7.7) 10/11/21 04:15 Band Neutrophils # 0.2 K/mm3 10/11/21 04:15 Lymphocytes # (Manual) 0.4 K/mm3 (1.2-5.4) L 10/11/21 04:15 Abs React Lymphs (Man) 0.0 K/mm3 10/11/21 04:15 Monocytes # (Manual) 0.0 K/mm3 (0.0-0.8) 10/11/21 04:15 Eosinophils # (Manual) 0.0 K/mm3 (0.0-0.4) 10/11/21 04:15 Basophils # (Manual) 0.0 K/mm3 (0.0-0.1) 10/11/21 04:15 Metamyelocytes # 0.1 K/mm3 10/11/21 04:15 Myelocytes # 0.4 K/mm3 10/11/21 04:15 Promyelocytes # 0.0 K/mm3 10/11/21 04:15 Blast Cells # 0.0 K/mm3 10/11/21 04:15 WBC Morphology Not Reportable 10/11/21 04:15 Hypersegmented Neuts Not Reportable 10/11/21 04:15 Hyposegmented Neuts Not Reportable 10/11/21 04:15 Hypogranular Neuts Not Reportable 10/11/21 04:15 Smudge Cells Not Reportable 10/11/21 04:15 Toxic Granulation 1+ 10/11/21 04:15 Toxic Vacuolation Not Reportable 10/11/21 04:15 Dohle Bodies Not Reportable 10/11/21 04:15 Pelger-Huet Anomaly Not Reportable 10/11/21 04:15 Claire Rods Not Reportable 10/11/21 04:15 Platelet Estimate Consistent w auto 10/11/21 04:15 Clumped Platelets Not Reportable 10/11/21 04:15 Plt Clumps, EDTA Not Reportable 10/11/21 04:15 Large Platelets Few 10/11/21 04:15 Giant Platelets Not Reportable 10/11/21 04:15 Platelet Satelliting Not Reportable 10/11/21 04:15 Plt Morphology Comment Not Reportable 10/11/21 04:15 RBC Morphology Not Reportable 10/11/21 04:15 Dimorphic RBCs Not Reportable 10/11/21 04:15 Polychromasia Not Reportable 10/11/21 04:15 Hypochromasia 1+ 10/11/21 04:15 Poikilocytosis Not Reportable 10/11/21 04:15 Anisocytosis Not Reportable 10/11/21 04:15 Microcytosis Not Reportable 10/11/21 04:15 Macrocytosis Not Reportable 10/11/21 04:15 Spherocytes Not Reportable 10/11/21 04:15 Pappenheimer Bodies Not Reportable 10/11/21 04:15 Sickle Cells Not Reportable 10/11/21 04:15 Target Cells Not Reportable 10/11/21 04:15 Tear Drop Cells Not Reportable 10/11/21 04:15 Ovalocytes Not Reportable 10/11/21 04:15 Helmet Cells Not Reportable 10/11/21 04:15 Pa-Coldiron Bodies Not Reportable 10/11/21 04:15 [place] Rings Not Reportable 10/11/21 04:15 Servando Cells Not Reportable 10/11/21 04:15 Bite Cells Not Reportable 10/11/21 04:15 Crenated Cell Not Reportable 10/11/21 04:15 Elliptocytes Not Reportable 10/11/21 04:15 Acanthocytes (Spur) Not Reportable 10/11/21 04:15 Rouleaux Not Reportable 10/11/21 04:15 Hemoglobin C Crystals Not Reportable 10/11/21 04:15 Schistocytes Not Reportable 10/11/21 04:15 Malaria parasites Not Reportable 10/11/21 04:15 Sukhwinder Bodies Not Reportable 10/11/21 04:15 Hem Pathologist Commnt No 10/11/21 04:15 ABG pH 7.318 pH Units (7.350-7.450) L 10/10/21 18:46 ABG pCO2 26.5 mm Hg 10/10/21 18:46 ABG pO2 98.6 mm Hg (80.0-90.0) H 10/10/21 18:46 ABG HCO3 13.3 mmol/L (20.0-26.0) L 10/10/21 18:46 ABG O2 Saturation 97.3 % (95.0-99.0) 10/10/21 18:46 ABG O2 Content 18.5 (0.0-44) 10/10/21 18:46 ABG Base Excess -11.1 mmol/L (-2.0-3.0) L 10/10/21 18:46 ABG Hemoglobin 13.7 gm/dl (14.0-18.0) L 10/10/21 18:46 ABG Carboxyhemoglobin 1.4 % (0.0-5.0) 10/10/21 18:46 ABG Methemoglobin 0.6 % (0.0-1.5) 10/10/21 18:46 VBG pH 6.952 (7.320-7.420) L* 10/10/21 13:08 Oxyhemoglobin 95.5 % (95.0-99.0) 10/10/21 18:46 FiO2 30 % 10/10/21 18:46 Sodium 164 mmol/L (137-145) H* 10/11/21 07:00 Potassium 3.3 mmol/L (3.6-5.0) L 10/11/21 07:00 Chloride 132.0 mmol/L (98-107) H 10/11/21 07:00 Carbon Dioxide 17 mmol/L (22-30) L 10/11/21 07:00 Anion Gap 18 mmol/L 10/11/21 07:00 BUN 38 mg/dL (9-20) H 10/11/21 07:00 Creatinine 2.0 mg/dL (0.8-1.3) H 10/11/21 07:00 Estimated GFR 44 ml/min 10/11/21 07:00 BUN/Creatinine Ratio 19 % 10/11/21 07:00 Glucose 140 mg/dL (75-100) H 10/11/21 07:00 POC Glucose 142 mg/dL (70-105) H 10/11/21 11:48 Ketones Quantitative Moderate (Negative) 10/10/21 13:56 Lactic Acid 7.30 mmol/L (0.7-2.0) H* 10/11/21 04:15 Calcium 7.9 mg/dL (8.4-10.2) L 10/11/21 07:00 Phosphorus 0.50 mg/dL (2.5-4.5) L* D 10/11/21 06:58 Magnesium 2.40 mg/dL (1.7-2.3) H 10/11/21 07:00 Total Bilirubin 0.40 mg/dL (0.1-1.2) 10/11/21 07:00 AST 50 units/L (5-40) H 10/11/21 07:00 ALT 58 units/L (7-56) H 10/11/21 07:00 Alkaline Phosphatase 79 units/L (35-129) 10/11/21 07:00 C-Reactive Protein 2.20 mg/dL (0.00-1.30) H 10/10/21 20:41 Total Protein 5.5 g/dL (6.3-8.2) L 10/11/21 07:00 Albumin 2.7 g/dL (3.9-5) L 10/11/21 07:00 Albumin/Globulin Ratio 1.0 % 10/11/21 07:00 Procalcitonin 22.83 ng/mL (<0.15) 10/10/21 20:41 Urine Color Yellow (Yellow) 10/10/21 Unknown Urine Turbidity Slightly-cloudy (Clear) 10/10/21 Unknown Urine pH 5.0 (5.0-7.0) 10/10/21 Unknown Ur Specific [place] 1.018 (1.003-1.030) 10/10/21 Unknown Urine Protein 30 mg/dl mg/dL (Negative) 10/10/21 Unknown Urine Glucose (UA) >=500 mg/dL (Negative) 10/10/21 Unknown Urine Ketones 20 mg/dL (Negative) 10/10/21 Unknown Urine Blood Sm (Negative) 10/10/21 Unknown Urine Nitrite Neg (Negative) 10/10/21 Unknown Urine Bilirubin Neg (Negative) 10/10/21 Unknown Urine Urobilinogen < 2.0 mg/dL (<2.0) 10/10/21 Unknown Ur Leukocyte Esterase Neg (Negative) 10/10/21 Unknown Urine WBC (Auto) 7.0 /HPF (0.0-6.0) H 10/10/21 Unknown Urine RBC (Auto) 2.0 /HPF (0.0-6.0) 10/10/21 Unknown U Epithel Cells (Auto) 1.0 /HPF (0-13.0) 10/10/21 Unknown Urine Bacteria (Auto) 1+ /HPF (Negative) 10/10/21 Unknown Urine Mucus Few /HPF 10/10/21 Unknown Urine Creatinine 32.0 mg/dL (0.1-20.0) H 10/10/21 Unknown Urine Sodium 16 mmol/L 10/10/21 Unknown Microbiology: Microbiology 10/10/21 20:41 Peripheral/Venous Blood Culture - Preliminary Culture in Progress 10/10/21 20:41 Peripheral/Venous Blood Culture - Preliminary Culture in Progress Rodrigez/IV: Voiding Method Indwelling Catheter Active Medications - Current Medications Current Medications: Generic Name Dose Route Start Last Admin Trade Name Freq PRN Reason Stop Dose Admin Acetaminophen 650 mg 10/10/21 14:04 Acetaminophen 325 Mg Tab PO Q6H PRN Pain MILD(1-3)/Fever >100.5/WATSON Albuterol 2.5 mg 10/10/21 14:04 Albuterol 2.5 Mg/3 Ml Nebu IH Q3HRT PRN Shortness Of Breath Dextrose 0 ml 10/10/21 14:04 Dextrose 50% In Water (25gm) 50 Ml Syringe IV Q30MIN PRN Hypoglycemia Protocol Divalproex Sodium 500 mg 10/10/21 22:00 10/10/21 22:[address] 500 Mg Tab PO Not Given BID JUAN JOSÉ Famotidine 20 mg 10/10/21 22:00 10/10/21 22:23 Famotidine 20 Mg/2 Ml Inj IV 20 mg QHS JUAN JOSÉ Administration Hydromorphone HCl 0.5 mg 10/10/21 14:04 Hydromorphone 1 Mg/1 Ml Inj IV Q23H PRN Pain , Severe (7-10) NORepinephrine/NS 8 MG-250 ML 8 mg in 250 mls @ 3.75 mls/hr 10/10/21 18:00 10/11/21 12:45 Norepinephrine/Ns 8 Mg-250 Ml (Double Conc) IV 0 mcg/min TITRATE JUAN JOSÉ 0 mls/hr Titration Protocol 2 MCG/MIN Lactated Ringer's 1,000 mls @ 250 mls/hr 10/11/21 08:30 10/11/21 13:10 Lactated Ringers IV 10/13/21 12:29 250 mls/hr DIRECT JUAN JOSÉ Administration Vasopressin 20 unit/ Sodium 101 mls @ 9.09 mls/hr 10/11/21 11:00 Chloride IV TITR JUAN JOSÉ Protocol 0.03 UNITS/MIN Insulin Glargine 5 units 10/11/21 22:00 Insulin Glargine 100 Units/Ml SUB-Q QHS JUAN JOSÉ Insulin Human Lispro 0 unit 10/11/21 11:30 10/11/21 11:30 Insulin Lispro 100 Unit/Ml SUB-Q Not Given ACHS JUAN JOSÉ Protocol Oxycodone/Acetaminophen 1 tab 10/10/21 14:04 Oxycodone /Acetaminophen 5-325mg Tab PO Q16H PRN Pain, Moderate (4-6) Sodium Bicarbonate 50 meq 10/10/21 18:00 10/11/21 10:00 Sodium Bicarb 8.4% 50 Meq/50 Ml Syringe IV 10/11/21 14:01 50 meq QID JUAN JOSÉ Administration Sodium Chloride 10 ml 10/10/21 22:00 10/10/21 22:23 Sodium Chloride 0.9% 10 Ml Flush Syringe IV 10 ml BID JUAN JOSÉ Administration Sodium Chloride 10 ml 10/10/21 14:04 Sodium Chloride 0.9% 10 Ml Flush Syringe IV PRN PRN LINE FLUSH Nutrition/Malnutrition Assess - Dietary Evaluation Nutrition/Malnutrition Findings: Nutrition Notes Start: 10/11/21 09:05 Freq: Status: Active Protocol: Document 10/11/21 09:05 GB (Rec: 10/11/21 09:21 GB [email or web address]) Nutrition Notes Need for Assessment generated from: MD Order Initial or Follow up Assessment Other Pertinent Diagnosis AMS, hyperglycemia Current Diet NPO x1day Labs/Tests 10/11: Na 164, K 3.3, BUN 38, Creatinine 2, Glucose 140 ( showing improvement), Ca 7.9, Mg 2.4, AST 50, ALT 58 Pertinent Medications LR 3bags @1000ml ea, norepenephrine/Ns8/Mg250 Height 6 ft Weight 68.039 kg [place] Body Weight (kg) 80.90 BMI 20.3 Weight change and time frame Admit weight No reported weight changes upon admission Weight Status Appropriate Subjective/Other Information H&P: DM(noncompliant), DKA - trigger for this is likely noncompliance as the pt is known to be noncompliant. Physical Assess: NC 4, caries and missing teeth GI: bowel sounds normal RD: recommend EXECUTIVE DIRECTOR OF MARKETING chew/swallow evaluation r/t caries and missing teeth Percent of energy/protein needs met: 0% - currently NPO Burn Absent Trauma Absent GI Symptoms None Food Allergy No Skin Integrity/Comment intact, no reported complications Current % PO Other Minimum of two criteria No #1 Nutrition Diagnosis Inadequate energy intake Etiology hyperglycemia, AMS As Evidenced by Signs and Symptoms NPOx1 day, AMS, altered nutritionally related labs (DM ) Is patient on ventilator? No Is Patient Ambulatory and/or Out of Bed No REE-([facility]-confined to bed) 1915.764 Kcal/Kg value to use for calculation 30 Approximate Energy Requirements Using 2041 kcal/Kg Calculation Used for Recommendations Kcal/kg Additional Notes Protein 1.2-1.5 g/kg @ 68k-102g Fluids: 1 ml/kcal or per MD Nutrition Intervention Change Diet Order: NPO x1day Advance to Consistent Carbohydrate (texture/ consistency per EXECUTIVE DIRECTOR OF MARKETING) when medically feasible Nutrition Support: n/a Add Supplement/Snack (indicate name/kcal n/a /protein ) Goal #1 Diet advance to consistent carbohydrate by F/U Goal #2 PO intake of meals to be 75% or greater daily for LOS Goal #3 Nutritionally related labs improving towards acceptable ranges during LOS Follow-Up By: 10/15/21 Additional Comments F/U: diet advancement, EXECUTIVE DIRECTOR OF MARKETING eval, PO intake, labs
[2021-10-11 13:47] LABS: BUN/Creatinine Ratio 24; Blood Urea Nitrogen 22 mg/dL (9-20); Hemolysis Index 5
--- NOTE | 2021-10-11 14:00 | Progress Note ---
Assessment and Plan Acute hypoxemic respiratory failure Hypovolemic shock +/- septic shock Diabetic ketoacidosis Acute kidney injury Leukopenia Severe metabolic acidosis Hyperkalemia Acute toxic metabolic encephalopathy Tobacco use disorder - wean Levophed for target MAP > 65 mmHg - continue aggressive volume resuscitation with LR - trend lactate - s/p PICC line - continue to wean supplemental oxygen for target O2 sat's > 90% acutely - aspiration precautions - bronchodilators with pulmonary hygiene per RT - avoid nephrotoxins, renally dose all medications - accuchecks with glycemic control per SSI (While critically ill target blood g lucose of 140-180 mg/dL; avoid hypoglycemia)(After DKA protocol over) - avoid benzodiazepine's, reduce the possibility of delirium - AB's per ID rec's - prn analgesia per pain score - Maintenance of sleep-wake cycle, avoid delirium - G.I. & VTE prophylaxis - PT/OT/ROM exercises - continue mobility protocols for pressure ulcer prophylaxis - Monitor hemodynamics closely - continue other care per attending / other consultants - discharge planning ongoing concurrently .... Re-evaluate in am & prn CONDITION: CRITICAL PROGNOSIS: GUARDED CODE STATUS: FULL CODE The high probability of a clinically significant, sudden or life-threatening deterioration of the [respiratory, cardiovascular & endocrine] system(s) required my full and direct attention, intervention and personal management. The aggregate critical care time was [31] minutes without overlap. Time includes spent on; [x] Data Review and interpretation [x] Patient assessment and monitoring of vital signs [x] Documentation [x] Medication orders and management Subjective Date of service: 10/11/21 Principal diagnosis: Ac hypoxemic resp failure; Shock; DKA; SONAM; Leukopenia; Hyperkalemia; AMS Interval history: Patient is seen today for: Acute hypoxemic respiratory failure; Shock; DKA; SONAM; Leukopenia; Hyperkalemia; AMS Seen and examined at bedside; 24hour events reviewed; nursing and respiratory care staff consulted; no adverse overnight events reported to me; resting peacefully in bed; denies ascute chest pain; remains hypotensive but also significantly intravascular volume depleted; Objective Vital Signs - 12hr 10/11/21 10/11/21 10/11/21 02:00 02:15 02:30 Temperature Pulse Rate 104 H 105 H 110 H Respiratory 29 H 15 22 Rate Blood Pressure 70/36 77/45 97/52 O2 Sat by Pulse 100 100 100 Oximetry 10/11/21 10/11/21 10/11/21 02:45 03:01 03:15 Temperature Pulse Rate 111 H 111 H 115 H Respiratory 23 16 24 Rate Blood Pressure 97/52 112/49 112/49 O2 Sat by Pulse 100 100 Oximetry 10/11/21 10/11/21 10/11/21 03:30 03:45 04:00 Temperature 97.2 F L Pulse Rate 110 H 112 H Respiratory 16 19 28 H Rate Blood Pressure 100/49 100/49 O2 Sat by Pulse 99 99 100 Oximetry 10/11/21 10/11/21 10/11/21 04:01 04:15 04:31 Temperature Pulse Rate 109 H 113 H 105 H Respiratory 13 13 24 Rate Blood Pressure 75/43 75/43 144/111 O2 Sat by Pulse 82 L 97 97 Oximetry 10/11/21 10/11/21 10/11/21 04:45 05:00 05:15 Temperature Pulse Rate 109 H 116 H 120 H Respiratory 26 H 15 24 Rate Blood Pressure 86/52 89/55 86/44 O2 Sat by Pulse 96 96 86 Oximetry 10/11/21 10/11/21 10/11/21 05:31 05:45 06:00 Temperature Pulse Rate 122 H 122 H 121 H Respiratory 30 H 28 H 27 H Rate Blood Pressure 82/47 76/49 83/48 O2 Sat by Pulse 97 93 97 Oximetry 10/11/21 10/11/21 10/11/21 06:15 06:31 06:45 Temperature Pulse Rate 123 H 125 H 127 H Respiratory 15 25 H 23 Rate Blood Pressure 83/48 81/42 139/114 O2 Sat by Pulse 95 97 95 Oximetry 10/11/21 10/11/21 10/11/21 07:01 07:15 07:30 Temperature Pulse Rate 129 H 132 H 134 H Respiratory 28 H 32 H 29 H Rate Blood Pressure 101/77 76/37 79/45 O2 Sat by Pulse 94 94 95 Oximetry 10/11/21 10/11/21 10/11/21 07:45 08:00 08:15 Temperature 97.7 F Pulse Rate 137 H 138 H 137 H Respiratory 28 H 35 H 32 H Rate Blood Pressure 81/44 92/49 101/59 O2 Sat by Pulse 95 81 L 94 Oximetry 10/11/21 10/11/21 10/11/21 08:26 08:31 08:45 Temperature Pulse Rate 138 H 141 H Respiratory 29 H 37 H Rate Blood Pressure 88/56 88/56 O2 Sat by Pulse 93 92 94 Oximetry 10/11/21 10/11/21 10/11/21 09:01 09:15 09:30 Temperature Pulse Rate 143 H 139 H 140 H Respiratory 34 H 40 H 24 Rate Blood Pressure 89/47 84/49 85/49 O2 Sat by Pulse 94 93 96 Oximetry 10/11/21 10/11/21 10/11/21 09:45 10:00 10:15 Temperature Pulse Rate 141 H 140 H 140 H Respiratory 30 H 32 H 28 H Rate Blood Pressure 89/52 84/46 84/50 O2 Sat by Pulse 91 95 98 Oximetry 10/11/21 10/11/21 10/11/21 10:30 10:45 11:00 Temperature Pulse Rate 139 H 136 H 138 H Respiratory 24 28 H 18 Rate Blood Pressure 134/47 136/44 150/51 O2 Sat by Pulse 93 97 100 Oximetry 10/11/21 10/11/21 10/11/21 11:15 11:30 11:45 Temperature Pulse Rate 139 H 136 H 137 H Respiratory 25 H 22 26 H Rate Blood Pressure 147/45 140/45 131/58 O2 Sat by Pulse 100 100 99 Oximetry 10/11/21 10/11/21 10/11/21 12:00 12:15 12:30 Temperature 98.4 F Pulse Rate 135 H 130 H 130 H Respiratory 33 H 31 H 24 Rate Blood Pressure 129/46 152/45 136/47 O2 Sat by Pulse 100 100 100 Oximetry 10/11/21 10/11/21 12:45 13:00 Temperature Pulse Rate 132 H 133 H Respiratory 18 29 H Rate Blood Pressure 129/46 142/68 O2 Sat by Pulse 100 Oximetry Constitutional: appears uncomfortable Eyes: non-icteric ENT: oropharynx dry Neck: supple, no lymphadenopathy, no JVD Effort: mildly labored Ascultation: Bilateral: rhonchi (scant) Percussion: Bilateral: not dull Cardiovascular: regular rate and rhythm (tachycardia) Gastrointestinal: hypoactive bowel sounds, soft, non-tender, non-distended Integumentary: normal Extremities: no cyanosis, no edema, pulses normal, no ischemia or petechiae Neurologic: non-focal exam, pupils equal and round, CN II-XII normal, motor strength normal and Psychiatric: mood appropriate, affect normal CBC and BMP: 10/11/21 04:15 10/11/21 12:00 ABG, PT/INR, D-dimer: ABG ABG pH 7.318 pH Units (7.350-7.450) L 10/10/21 18:46 ABG pCO2 26.5 mm Hg 10/10/21 18:46 ABG pO2 98.6 mm Hg (80.0-90.0) H 10/10/21 18:46 ABG O2 Saturation 97.3 % (95.0-99.0) 10/10/21 18:46 Abnormal lab findings: Abnormal Labs 10/10/21 10/10/21 10/10/21 12:20 13:08 13:08 WBC RBC 5.27 H Hgb Hct 53.3 H MCV 101 H MCH 27 L MCHC 26 L RDW 20.8 H Plt Count Lymph # (Auto) 1.1 L Seg Neutrophils % 76.7 H Lymphocytes % (Manual) Lymphocytes # (Manual) ABG pH ABG pO2 ABG HCO3 ABG Base Excess ABG Hemoglobin VBG pH Sodium Potassium 5.3 H Chloride 89.3 L Carbon Dioxide 4 L* BUN 58 H Creatinine 4.0 H Glucose POC Glucose 539 H Lactic Acid Calcium Phosphorus Magnesium 4.20 H AST ALT C-Reactive Protein Total Protein Albumin Urine WBC (Auto) Urine Creatinine 10/10/21 10/10/21 10/10/21 13:08 14:23 14:23 WBC RBC Hgb Hct MCV MCH MCHC RDW Plt Count Lymph # (Auto) Seg Neutrophils % Lymphocytes % (Manual) Lymphocytes # (Manual) ABG pH ABG pO2 ABG HCO3 ABG Base Excess ABG Hemoglobin VBG pH 6.952 L* Sodium Potassium Chloride 90.6 L Carbon Dioxide 6 L* BUN 56 H Creatinine 3.7 H Glucose 1682 H* POC Glucose Lactic Acid Calcium Phosphorus 12.00 H Magnesium 3.80 H AST ALT C-Reactive Protein Total Protein Albumin Urine WBC (Auto) Urine Creatinine 10/10/21 10/10/21 10/10/21 15:37 15:37 16:39 WBC 3.4 L RBC 5.31 H Hgb Hct 51.1 H MCV 96 H MCH 27 L MCHC 28 L RDW 20.5 H Plt Count Lymph # (Auto) Seg Neutrophils % Lymphocytes % (Manual) Lymphocytes # (Manual) ABG pH ABG pO2 ABG HCO3 ABG Base Excess ABG Hemoglobin VBG pH Sodium Potassium 5.5 H Chloride 94.6 L Carbon Dioxide 5 L* BUN 57 H Creatinine 3.6 H Glucose 1608 H* POC Glucose > 600 H Lactic Acid Calcium Phosphorus Magnesium AST ALT C-Reactive Protein Total Protein Albumin Urine WBC (Auto) Urine Creatinine 10/10/21 10/10/21 10/10/21 16:41 17:02 18:07 WBC RBC Hgb Hct MCV MCH MCHC RDW Plt Count Lymph # (Auto) Seg Neutrophils % Lymphocytes % (Manual) Lymphocytes # (Manual) ABG pH ABG pO2 ABG HCO3 ABG Base Excess ABG Hemoglobin VBG pH Sodium Potassium 5.6 H Chloride Carbon Dioxide 7 L* BUN 56 H Creatinine 4.0 H Glucose 1476 H* POC Glucose > 600 H > 600 H Lactic Acid Calcium Phosphorus Magnesium AST ALT C-Reactive Protein Total Protein Albumin Urine WBC (Auto) Urine Creatinine 10/10/21 10/10/21 10/10/21 18:46 19:44 20:41 WBC RBC Hgb Hct MCV MCH MCHC RDW Plt Count Lymph # (Auto) Seg Neutrophils % Lymphocytes % (Manual) Lymphocytes # (Manual) ABG pH 7.318 L ABG pO2 98.6 H ABG HCO3 13.3 L ABG Base Excess -11.1 L ABG Hemoglobin 13.7 L VBG pH Sodium Potassium Chloride Carbon Dioxide BUN Creatinine Glucose POC Glucose > 600 H Lactic Acid 4.70 H* Calcium Phosphorus Magnesium AST ALT C-Reactive Protein Total Protein Albumin Urine WBC (Auto) Urine Creatinine 10/10/21 10/10/21 10/10/21 20:41 21:19 22:29 WBC RBC Hgb Hct MCV MCH MCHC RDW Plt Count Lymph # (Auto) Seg Neutrophils % Lymphocytes % (Manual) Lymphocytes # (Manual) ABG pH ABG pO2 ABG HCO3 ABG Base Excess ABG Hemoglobin VBG pH Sodium 160 H D Potassium 2.3 L* D Chloride 127.2 H Carbon Dioxide 13 L BUN 40 H Creatinine 2.6 H Glucose 722 H* POC Glucose > 600 H 568 H Lactic Acid Calcium 6.2 L D Phosphorus Magnesium AST ALT C-Reactive Protein 2.20 H Total Protein Albumin Urine WBC (Auto) Urine Creatinine 10/10/21 10/10/21 10/10/21 23:26 23:35 Unknown WBC RBC Hgb Hct MCV MCH MCHC RDW Plt Count Lymph # (Auto) Seg Neutrophils % Lymphocytes % (Manual) Lymphocytes # (Manual) ABG pH ABG pO2 ABG HCO3 ABG Base Excess ABG Hemoglobin VBG pH Sodium 164 H* Potassium 2.4 L* Chloride 127.0 H Carbon Dioxide 19 L BUN 42 H Creatinine 2.7 H Glucose 557 H* POC Glucose 492 H Lactic Acid Calcium 7.8 L D Phosphorus Magnesium AST ALT C-Reactive Protein Total Protein Albumin Urine WBC (Auto) 7.0 H Urine Creatinine 10/10/21 10/11/21 10/11/21 Unknown 01:10 01:54 WBC RBC Hgb Hct MCV MCH MCHC RDW Plt Count Lymph # (Auto) Seg Neutrophils % Lymphocytes % (Manual) Lymphocytes # (Manual) ABG pH ABG pO2 ABG HCO3 ABG Base Excess ABG Hemoglobin VBG pH Sodium Potassium Chloride Carbon Dioxide BUN Creatinine Glucose POC Glucose 376 H 335 H Lactic Acid Calcium Phosphorus Magnesium AST ALT C-Reactive Protein Total Protein Albumin Urine WBC (Auto) Urine Creatinine 32.0 H 10/11/21 10/11/21 10/11/21 02:53 04:15 04:15 WBC 3.2 L RBC Hgb 11.7 L Hct MCV 82 L MCH 27 L MCHC RDW 18.9 H Plt Count 131 L Lymph # (Auto) Seg Neutrophils % Lymphocytes % (Manual) 13.0 L Lymphocytes # (Manual) 0.4 L ABG pH ABG pO2 ABG HCO3 ABG Base Excess ABG Hemoglobin VBG pH Sodium 167 H* Potassium 2.8 L* Chloride 132.8 H Carbon Dioxide 19 L BUN 37 H Creatinine 2.1 H Glucose 182 H POC Glucose 239 H Lactic Acid Calcium 7.8 L Phosphorus Magnesium AST ALT C-Reactive Protein Total Protein Albumin Urine WBC (Auto) Urine Creatinine 10/11/21 10/11/21 10/11/21 04:15 04:25 05:31 WBC RBC Hgb Hct MCV MCH MCHC RDW Plt Count Lymph # (Auto) Seg Neutrophils % Lymphocytes % (Manual) Lymphocytes # (Manual) ABG pH ABG pO2 ABG HCO3 ABG Base Excess ABG Hemoglobin VBG pH Sodium Potassium Chloride Carbon Dioxide BUN Creatinine Glucose POC Glucose 183 H 146 H Lactic Acid 7.30 H* Calcium Phosphorus Magnesium AST ALT C-Reactive Protein Total Protein Albumin Urine WBC (Auto) Urine Creatinine 10/11/21 10/11/21 10/11/21 06:58 07:00 07:00 WBC RBC Hgb Hct MCV MCH MCHC RDW Plt Count Lymph # (Auto) Seg Neutrophils % Lymphocytes % (Manual) Lymphocytes # (Manual) ABG pH ABG pO2 ABG HCO3 ABG Base Excess ABG Hemoglobin VBG pH Sodium 164 H* Potassium 3.3 L Chloride 132.0 H Carbon Dioxide 17 L BUN 38 H Creatinine 2.0 H Glucose 140 H POC Glucose 130 H Lactic Acid Calcium 7.9 L Phosphorus 0.50 L* D Magnesium 2.40 H AST 50 H ALT 58 H C-Reactive Protein Total Protein 5.5 L Albumin 2.7 L Urine WBC (Auto) Urine Creatinine 10/11/21 10/11/21 10/11/21 08:08 10:32 11:48 WBC RBC Hgb Hct MCV MCH MCHC RDW Plt Count Lymph # (Auto) Seg Neutrophils % Lymphocytes % (Manual) Lymphocytes # (Manual) ABG pH ABG pO2 ABG HCO3 ABG Base Excess ABG Hemoglobin VBG pH Sodium Potassium Chloride Carbon Dioxide BUN Creatinine Glucose POC Glucose 114 H 112 H 142 H Lactic Acid Calcium Phosphorus Magnesium AST ALT C-Reactive Protein Total Protein Albumin Urine WBC (Auto) Urine Creatinine 10/11/21 10/11/21 12:00 13:17 WBC RBC Hgb Hct MCV MCH MCHC RDW Plt Count Lymph # (Auto) Seg Neutrophils % Lymphocytes % (Manual) Lymphocytes # (Manual) ABG pH ABG pO2 ABG HCO3 ABG Base Excess ABG Hemoglobin VBG pH Sodium Potassium Chloride 124.1 H Carbon Dioxide BUN 22 H Creatinine Glucose 128 H POC Glucose Lactic Acid 5.20 H* Calcium Phosphorus Magnesium AST ALT C-Reactive Protein Total Protein Albumin Urine WBC (Auto) Urine Creatinine Chest x-ray: pending Allied health notes reviewed: nursing
[2021-10-11 14:59] LABS: BUN/Creatinine Ratio 24; Blood Urea Nitrogen 29 mg/dL (9-20); Calcium 6.6 mg/dL (8.4-10.2); Hemolysis Index 4
[2021-10-11] MEDS ORDERED: MAGNESIUM SULFATE 2 GM/50 ML BAG IV ONE (15:09)
[2021-10-11] MEDS: DIVALPROEX DR 500 MG TAB PO SCH (15:31)
[2021-10-11] MEDS ORDERED: SIMETHICONE 80 MG CHEW TAB PO PRN (16:35)
[2021-10-11] MEDS ORDERED: SODIUM BICARB 8.4% 50 MEQ/50 ML SYRINGE IV ONE ×3 (17:43→22:15)
--- NOTE | 2021-10-11 17:46 | XRay Report ---
XR chest 1V ap INDICATION / CLINICAL INFORMATION: Hypoxia. COMPARISON: Radiograph from yesterday. FINDINGS: SUPPORT DEVICES: Right upper extremity PICC terminates over the cavoatrial junction. HEART /PULMONARY VASCULATURE: No significant abnormality. LUNGS / PLEURA: Mild left basilar opacity, likely reflecting volume loss. No new or increasing airspa ce consolidation. No sizable pleural effusion. No pneumothorax. IMPRESSION: Right upper extremity PICC terminates over the cavoatrial junction. No other interval change. Signer Name: Lasha Sena MD Signed: 10/11/2021 5:42 PM Workstation Name: [id number]
--- NOTE | 2021-10-11 17:52 | Consultation ---
History of Present Illness - Reason for Consult Consult date: 10/11/21 acute renal failure, hypernatremia - History of Present Illness This is a 46-year-old man with uncontrolled diabetes who presented to the emergency department with confusion and was admitted due to DKA and acute renal failure. Nephrology was consulted for acute kidney injury and electrolyte arrangement. His mental status has improved since admission and he denies dysuria, hematuria and decreased urine output. Past History Past Medical History: diabetes Past Surgical History: No surgical history, Other (reviewed) Social history: single, smoking Family history: diabetes, hypertension Medications and Allergies Allergies Allergy/AdvReac Type Severity Reaction Status Date / Time No Known Allergies Allergy Verified 06/24/15 14:02 Home Medications Medication Instructions Recorded Confirmed Last Taken Type Divalproex Dr [Depakote] 500 mg PO BID 12/14/13 10/10/21 11/30/13 History Cyclobenzaprine [Flexeril 10mg] 10 mg PO TID PRN #20 tablet 02/24/15 10/10/21 Unknown Rx Ibuprofen [Motrin] 800 mg PO Q8H #30 tablet 02/24/15 10/10/21 Unknown Rx traMADoL [Ultram 50 MG tab] 50 mg PO Q6HR PRN #20 tablet 02/24/15 10/10/21 Unknown Rx HYDROcodone/APAP 5-325 [[place] 1 each PO Q4HR PRN #20 tablet 02/19/16 10/10/21 Unknown Rx 5/325] Ibuprofen [Motrin] 600 mg PO Q6H PRN #20 tablet 02/19/16 10/10/21 Unknown Rx Penicillin Vk [Veetids TAB] 500 mg PO QID #40 tablet 02/19/16 10/10/21 Unknown Rx Naproxen [Naproxen TAB] 500 mg PO BID PRN #60 tablet 08/07/17 10/10/21 Unknown Rx cephALEXin [Keflex] 500 mg PO TID #30 capsule 08/07/17 10/10/21 Unknown Rx Acetaminophen/Codeine [Tylenol 1 tab PO Q6H PRN #12 tab 06/07/18 10/10/21 Unknown Rx /Codeine # 3 tab] Sulfamethoxazole/Trimethoprim 1 each PO BID 7 Days #14 tablet 06/07/18 10/10/21 Unknown Rx [Bactrim DS TAB] Insulin Lispro Prot/Lispro 4 10/11/21 10/09/21 History [HumaLOG Mix 75/25 Vial] Active Meds: Active Medications Acetaminophen (Acetaminophen 325 Mg Tab) 650 mg PO Q6H PRN PRN Reason: Pain MILD(1-3)/Fever >100.5/[place] Albuterol (Albuterol 2.5 Mg/3 Ml Nebu) 2.5 mg IH Q3HRT PRN PRN Reason: Shortness Of Breath Dextrose (Dextrose 50% In Water (25gm) 50 Ml Syringe) 0 ml IV Q30MIN PRN; Pr otocol PRN Reason: Hypoglycemia Divalproex Sodium (Divalproex Dr 500 Mg Tab) 500 mg PO BID JUAN JOSÉ Last Admin: 10/11/21 15:31 Dose: Not Given Documented by: Famotidine (Famotidine 20 Mg/2 Ml Inj) 20 mg IV QHS JUAN JOSÉ Last Admin: 10/10/21 22:23 Dose: 20 mg Documented by: Hydromorphone HCl (Hydromorphone 1 Mg/1 Ml Inj) 0.5 mg IV Q23H PRN PRN Reason: Pain , Severe (7-10) NORepinephrine/NS 8 MG-250 ML (Norepinephrine/Ns 8 Mg-250 Ml (Double Conc)) 8 mg in 250 mls @ 3.75 mls/hr IV TITRATE JUAN JOSÉ; Protocol Last Titration: 10/11/21 17:30 Dose: 6 mcg/min, 11.25 mls/hr Documented by: Lactated Ringer's (Lactated Ringers) 1,000 mls @ 250 mls/hr IV DIRECT JUAN JOSÉ Stop: 10/13/21 12:29 Last Admin: 10/11/21 13:10 Dose: 250 mls/hr Documented by: Vasopressin 20 unit/ Sodium (Chloride) 101 mls @ 9.09 mls/hr IV TITR JUAN JOSÉ; Protocol Levofloxacin/Dextrose (Levaquin 750mg/150ml) 750 mg in 150 mls @ 100 mls/hr IV Q24H JUAN JOSÉ; Protocol Stop: 10/17/21 09:59 Lactated Ringer's (Lactated Ringers) 1,000 mls @ 999 mls/hr IV BOLUS ONE Stop: 10/11/21 18:14 Last Admin: 10/11/21 17:39 Dose: 999 mls/hr Documented by: Sodium Bicarbonate 100 meq/ (Sterile Water) 1,100 mls @ 150 mls/hr IV DIRECT JUAN JOSÉ Stop: 10/16/21 01:19 Insulin Glargine (Insulin Glargine 100 Units/Ml) 5 units SUB-Q QHS JUAN JOSÉ Insulin Human Lispro (Insulin Lispro 100 Unit/Ml) 0 unit SUB-Q ACHS [facility]; Protocol Last Admin: 10/11/21 16:46 Dose: 2 unit Documented by: Oxycodone/Acetaminophen (Oxycodone /Acetaminophen 5-325mg Tab) 1 tab PO Q16H PRN PRN Reason: Pain, Moderate (4-6) Last Admin: 10/11/21 16:22 Dose: 1 tab Documented by: Senna (Sennosides 8.6 Mg Tab) 8.6 mg PO QHS JUAN JOSÉ Simethicone (Simethicone 80 Mg Chew Tab) 80 mg PO Q6H PRN PRN Reason: Gas pain Sodium Bicarbonate (Sodium Bicarb 8.4% 50 Meq/50 Ml Syringe) 50 meq IV ONCE ONE Stop: 10/11/21 17:44 Sodium Chloride (Sodium Chloride 0.9% 10 Ml Flush Syringe) 10 ml IV BID [facility] Last Admin: 10/11/21 10:00 Dose: 10 ml Documented by: Sodium Chloride (Sodium Chloride 0.9% 10 Ml Flush Syringe) 10 ml IV PRN PRN PRN Reason: LINE FLUSH Thiamine HCl (Thiamine 100 Mg Tab) 100 mg PO QDAY [facility] Review of Systems Constitutional: no fever, no chills Ears, nose, mouth and throat: no nasal congestion, no nasal discharge Cardiovascular: no edema, no syncope Respiratory: no cough, no shortness of breath Gastrointestinal: no nausea, no vomiting Genitourinary Male: no dysuria, no hematuria, no flank pain Musculoskeletal: no muscle weakness, no muscle cramps Integumentary: no rash, no pruritis Neurological: no weakness, no parathesias Psychiatric: no anxiety, no paranoia Endocrine: no excessive sweating, no flushing Exam - Vital Signs Vital signs: Vital Signs Temp Pulse Resp BP Pulse Ox 95.6 F L 90 20 93/66 95 10/10/21 12:11 10/10/21 12:11 10/10/21 12:11 10/10/21 12:11 10/10/21 12:11 - Physical Exam Narrative exam: General: No acute distress Neck: Supple, no JVD Chest: Clear to auscultation bilaterally Heart: RRR, S1 and S2, no pericardial rub Abdomen: Soft, nontender, no renal bruit Extremity: No peripheral cyanosis, edema Neurological: Awake, no asterixis Dermatology: No skin rash Psych: No agitation Musculoskeletal: No joint effusion Results - Lab Results 10/11/21 04:15 10/11/21 13:20 Most recent lab results ABG pH 7.318 pH Units (7.350-7.450) L 10/10/21 18:46 ABG pCO2 26.5 mm Hg 10/10/21 18:46 ABG pO2 98.6 mm Hg (80.0-90.0) H 10/10/21 18:46 ABG HCO3 13.3 mmol/L (20.0-26.0) L 10/10/21 18:46 ABG O2 Saturation 97.3 % (95.0-99.0) 10/10/21 18:46 Calcium 6.6 mg/dL (8.4-10.2) L D 10/11/21 13:20 Phosphorus 9.80 mg/dL (2.5-4.5) H D 10/11/21 12:00 Magnesium 0.90 mg/dL (1.7-2.3) L* 10/11/21 12:00 Urine Creatinine 32.0 mg/dL (0.1-20.0) H 10/10/21 Unknown Urine Sodium 16 mmol/L 10/10/21 Unknown Assessment and Plan Assessment Acute kidney injury Hypernatremia Acidosis Hypocalcemia Recommendations SONAM likely secondary to DKA and hypovolemia. Improved with DKA treatment and hydration. Recommend oral hydration with 250 cc every 3-4 hours. If unable to keep up recommend NG tube placement with free water flushes. Start hypotonic bicarb fluids Repeat BMP and check ABG given acidosis Start thiamine tablets Avoid nephrotoxins Keep glucose < 180 mg/dl Start Calcium supplements Check Vit D 25
[2021-10-11] MEDS ORDERED: THIAMINE 100 MG TAB PO SCH (18:00)
[2021-10-11] MEDS ORDERED: SODIUM BICARBONATE 100 MEQ in WATER FOR INJECTION (PF) 1,000 ML IV SCH (18:00)
[2021-10-11 18:59] LABS: ABG Base Excess -15.4 mmol/L (-2.0-3.0); ABG HCO3 13.6 mmol/L (20.0-26.0); ABG Methemoglobin 0.9 % (0.0-1.5); ABG Oxygen Saturation 56.8 % (95.0-99.0); ABG PCO2 46.5 mm Hg
[2021-10-11 19:21] LABS: ABG PH 7.082 pH Units (7.350-7.450); ABG PO2 39.3 mm Hg (80.0-90.0)
[2021-10-11] MEDS ORDERED: SODIUM CHLORIDE 0.9% 1000 ML 2,000 ML ONE (19:25)
[2021-10-11] MEDS ORDERED: SODIUM BICARB 8.4% 50 MEQ/50 ML VIAL IV ONE (21:04)
--- NOTE | 2021-10-11 21:05 | Event Note ---
Date: 10/11/21
--- NOTE | 2021-10-11 21:08 | XRay Report ---
XR chest 1V ap INDICATION / CLINICAL INFORMATION: ETT placement verification. COMPARISON: Radiograph from earlier same day. FINDINGS: SUPPORT DEVICES: Endotracheal tube terminates above the thoracic inlet. Otherwise stable HEART /PULMONARY VASCULATURE: Unchanged. LUNGS / PLEURA: Slight increase in bibasilar airspace opacities, may reflect volume loss. No sizable pleural effusion. IMPRESSION: 1. Endotracheal tube terminates above the thoracic inlet. Consider advancement by approximately 3.5-4 cm. 2. Slight increase in bibasilar airspace opacities, favored to reflect atelectasis. Infiltrate is not excluded. Signer Name: Lasha Sena MD Signed: 10/11/2021 9:03 PM Workstation Name: [id number]
--- NOTE | 2021-10-11 21:10 | XRay Report ---
Pelvis, 2 views HISTORY: Femoral line attempted bedside. Broken guidewire. COMPARISON: None FINDINGS: Linear radiopaque density noted extending along the course of the right femoral vessel. Thi s extends superiorly out of the [id number]. This likely reflects reported guidewire. No other sign ificant abnormality. Signer Name: Lasha Sena MD Signed: 10/11/2021 9:05 PM Workstation Name: [email or web address]
[2021-10-11] MEDS ORDERED: SENNOSIDES 8.6 MG TAB PO SCH (22:00)
[2021-10-11] MEDS ORDERED: PHENYLEPHRINE 100 MG in SODIUM CHLORIDE 0.9% 90 ML IV SCH (22:00)
[2021-10-11] MEDS ORDERED: LACTATED RINGERS IV SCH (22:00)
[2021-10-11] MEDS ORDERED: SODIUM BICARBONATE IV SCH (22:00)
[2021-10-11] MEDS ORDERED: CALCIUM CARB/VIT D3/MINERALS 600 MG/800 UNITS TAB PO SCH (22:00)
[2021-10-11] MEDS ORDERED: SODIUM BICARBONATE 150 MEQ in WATER FOR INJECTION (PF) 1,000 ML IV SCH (22:00)
[2021-10-11] MEDS ORDERED: INSULIN GLARGINE 100 UNITS/ML SUB-Q SCH (22:00)
--- NOTE | 2021-10-11 22:15 | Event Note ---
Date: 10/11/21 ABG + repeat labs reviewed Severe acidosis noted Appears to be clinically deteriorating He is currently maxed out on 2 vasopressors with MAPS still < 65 Recommend adding third vasopressor, maintain MAP > 65 Not a candidate for HD at this time due to severe hemodynamic instability, of note last creatinine within normal range Suspect non-renal etiology of acidosis Drop in H&H noted, he did receive fluids so there may be a dilutional component, however recommend ruling out active bleed Continue sodium bicarb drip Ordered bicarb injection x 2 Please notify me if he hemodynamically stabilizes Case discussed in detail with Dr Edwards
[2021-10-11] MEDS ORDERED: ATROPINE 0.1% (1 MG/10 ML) CARDIAC SYRINGE IV ONE (22:20)
[2021-10-11] MEDS ORDERED: DEXTROSE 50% IN WATER (25GM) 50 ML SYRINGE IV ONE (22:21)
[2021-10-11] MEDS ORDERED: DOPamine/D5W 800 MG/250 ML 800 MG/250 ML BAG IV SCH (23:00)
[2021-10-11 23:31] LABS: Calcium 7.5 mg/dL (8.4-10.2)
[2021-10-11 23:35] LABS: Hematocrit 25.3 % (35.5-45.6); Hemoglobin 7.4 gm/dl (11.8-15.2); Mean Corpuscular HGB Conc 29 % (32-34); Mean Corpuscular Volume 95 fl (84-94); Red Blood Count 2.66 M/mm3 (3.65-5.03); Red Cell Distribution Width 18.9 % (13.2-15.2)
[2021-10-11 23:36] LABS: Platelet Count 37 K/mm3 (140-440)
[2021-10-11 23:41] LABS: Albumin 1.4 g/dL (3.9-5); Calcium 7.5 mg/dL (8.4-10.2)
[2021-10-12] MEDS ORDERED: INSULIN REGULAR, HUMAN 100 UNITS/1 ML IV ONE (01:00)
[2021-10-12] MEDS ORDERED: DEXTROSE 50% IN WATER (25GM) 50 ML SYRINGE IV ONE (01:00)
[2021-10-12] MEDS ORDERED: CALCIUM GLUCONATE 2,000 MG in SODIUM CHLORIDE 0.9% 100 ML IV ONE (01:01)
[2021-10-12] MEDS ORDERED: SODIUM POLYSTYRENE 15 GM/60 ML ORAL LIQD PO ONE (01:02)
[2021-10-12] MEDS: NORepinephrine/NS 8 MG-250 ML 8 MG/250 ML INFUS..BTL IV SCH (01:58)
[2021-10-12] MEDS ORDERED: SODIUM BICARB 8.4% 50 MEQ/50 ML SYRINGE IV ONE (02:30)
[2021-10-12] MEDS ORDERED: EPINEPHrine 1 MG/10 ML SYRINGE ONE (02:30)
[2021-10-12 03:32] VITALS: BP 149/25
--- NOTE | 2021-10-12 03:43 | Event Note ---
Date: 10/12/21 GIO SÁNCHEZ called on 46-year-old -[place] male who had been on admission for DKA and acute encephalopathy. Resuscitative measures were commenced according to ACLS protocol. Patient received multiple rounds of epinephrine, sodium bicarb. He had been on 4 pressors. All resuscitative measures were futile Upon exam: No response to deep sternal rub or verbal commands Pupils were fixed and dilated. Chest: No breath sounds Cardiovascular exam: No heart sounds and no peripheral pulses Abdomen: Soft Extremities: cold and clammy Central nervous system: No reflexes Patient pronounced at 2:44 AM on October 12, 2021. Family to be immediately notified
[2021-10-12 04:07] LABS: Nucleated Red Blood Cells 17.2 % (0.0-0.9); Total Cells Counted 58
[2021-10-12 04:08] LABS: Anisocytosis 1+; Hypochromasia 1+
[2021-10-12 04:09] LABS: Large Platelets Few; Platelet Estimate Cons
--- NOTE | 2021-10-12 09:17 | Event Note ---
Date: 10/12/21 Patient with a history of numerous medical comorbidities who presented in critical condition. Given his hypotension and multiple pressors, decision was made to place an art line by hospitalist. During this procedure, the wire became dislodged. X-rays of the abdomen and pelvis were performed which demonstrates that the wire appears to be partially within the soft tissues of the groin and partially intravascular extending up the aorta. Recommended that the patient be placed on anticoagulation as there is no emergent need to removed this wire given its positioning. The wire does not appear to be contributing to the patient's clinical condition or subsequent decline.
== END 2021-10-12 04:15 | DRG 871 ==
LOC: ED 12:06 → CC1 14:04
PROVIDERS: ADMIT Internal Medicine; ATTEND Internal Medicine
PROC: 4A033R1 Measurement of Arterial Saturation, Peripheral, Percutaneous Approach (ICD-10-PCS; 2021-10-10)
PROC: 5A1935Z Respiratory Ventilation, Less than 24 Consecutive Hours (ICD-10-PCS; principal; 2021-10-11)
PROC: 0BH17EZ Insertion of Endotracheal Airway into Trachea, Via Natural or Artificial Opening (ICD-10-PCS; 2021-10-11)
PROC: 02HV33Z Insertion of Infusion Device into Superior Vena Cava, Percutaneous Approach (ICD-10-PCS; 2021-10-11)
PROC: 5A09357 Assistance with Respiratory Ventilation, Less than 24 Consecutive Hours, Continuous Positive Airway Pressure (ICD-10-PCS; 2021-10-11)
DX: A41.9 Sepsis, unspecified organism (principal); J96.01 Acute respiratory failure with hypoxia; E10.10 Type 1 diabetes mellitus with ketoacidosis without coma; G92.9 Unspecified toxic encephalopathy; N17.9 Acute kidney failure, unspecified; E46 Unspecified protein-calorie malnutrition; E87.0 Hyperosmolality and hypernatremia; R57.1 Hypovolemic shock; F31.9 Bipolar disorder, unspecified; E83.51 Hypocalcemia; Z68.20 Body mass index [BMI] 20.0-20.9, adult; J43.9 Emphysema, unspecified; F17.200 Nicotine dependence, unspecified, uncomplicated; E86.0 Dehydration; E83.42 Hypomagnesemia; Z91.19 Patient's noncompliance with other medical treatment and regimen; Z83.3 Family history of diabetes mellitus; Z82.49 Family history of ischemic heart disease and other diseases of the circulatory system
CPT/HCPCS: 31500; 36415; 36600; 71045; 72170; 80048; 80053; 81001; 82010; 82140; 82570; 82803; 82805; 82962; 83690; 83735; 84100; 84145; 84300; 85007; 85025; 85027; 86140; 87040; 94002; 94660; 94760; G0378; J2354; J3490; J7510; Q0162; Q9967; J0171; J0461; J0610; J0692; J1265; J1815; J2370; J3370; J3475; J3480; J7030; J7040; J7120; J7131